=== PATIENT | male | born 1955 | race Caucasian/White ===

== ENCOUNTER → 2017-01-05 | Outpatient (CLI) | payer OTHER ==
[~2017-01-05] MED LIST: ASCO500T16 PO; EFFSR150 PO; EFFSR75 PO; FISHOIL PO; LEVO100T PO; LISI-725 PO; METFTAB PO; METO1TAB66 PO; MULTTAB58 PO; NIAC500T8 PO; POTA20TA16 PO; TYLOTC500 PO; VITA400C3 PO
[2017-01-05 15:59] LABS: BASO % 0.7 %; BASO ABS # 0.06 K/uL (0-0.2); COMPLETE YES; EOS % 3.3 %; HEMATOCRIT 42.6 % (42-52); IG% 0.2 %; LYMPH % 22.6 %; LYMPH ABS # 2.07 K/uL (1.2-3.4); MEAN CELL VOLUME 94.2 fL (80-100); MEAN CORPUSCULAR HEMOGLOBIN 31.9 pg (25-34); MEAN CORPUSCULAR HGB CONC 33.8 g/dl (32-36); MEAN PLATELET VOLUME 11.3 fL (7.4-10.4); MONO % 12.3 %; NEUT % 60.9 %; PLATELET COUNT 279 K/uL (130-400); RED BLOOD COUNT 4.52 M/uL (4.7-6.1); WHITE BLOOD COUNT 9.15 K/uL (4.8-10.8)
[2017-01-05 16:02] LABS: URINE APPEARANCE CLOUDY (CLEAR); URINE BILIRUBIN NEG (NEG); URINE COLOR YELLOW; URINE NITRITE NEG (NEG); URINE PH 7.5 (4.5-7.5); URINE SPECIFIC GRAVITY 1.018 (1.000-1.030); UROBILINOGEN NEG (NEG); ZZUR CULT IF INDIC CLEAN CATCH NO
[2017-01-05 16:04] LABS: MANUAL MICROSCOPIC REQUIRED? NO; REVIEW REQ? NO
[2017-01-05 16:23] LABS: ALT/SGPT 34 U/L (12-78); BLOOD UREA NITROGEN 13 mg/dl (7-18); BUN/CREATININE RATIO 8.5 (10-20); CALCIUM 9.2 mg/dl (8.5-10.1); CARBON DIOXIDE 31 mmol/L (21-32); CHLORIDE 103 mmol/L (98-107); CHOLESTEROL 189 mg/dl (0-200); CREATININE 1.53 mg/dl (0.60-1.40); GLUCOSE 93 mg/dl (70-99); POTASSIUM 3.7 mmol/L (3.5-5.1); SODIUM 139 mmol/L (136-145)
[2017-01-05 16:32] LABS: RATIO 4.9 mcg/mg (0-30.0)
[2017-01-05 16:34] LABS: ALB/GLOB RATIO 1.2 (0.9-2); ALKALINE PHOSPHATASE 72 U/L (45-117); AST/SGOT 22 U/L (15-37); CHOLESTEROL/HDL RATIO 5.1; HDL CHOLESTEROL 37 mg/dl; LDL CHOLESTEROL CALCULATED 85 mg/dl; PROSTATE SPECIFIC ANTIGEN 0.667 ng/ml (0.000-4.000); TRIGLYCERIDES 333 mg/dl (0-150); VERY LOW DENSITY LIPOPROT CALC 67 mg/dl
[2017-01-06 06:58] LABS: ESTIMATED AVERAGE GLUCOSE 123 mg/dl; HA1C FLAG Normal (Normal)
== END | disposition home or self-care (01) ==
LOC: C.LAB1850 15:09
PROVIDERS: ATTEND Internal Medicine
DX: R73.03 Prediabetes (principal); E55.9 Vitamin D deficiency, unspecified; E53.8 Deficiency of other specified B group vitamins; R35.1 Nocturia; E03.9 Hypothyroidism, unspecified; D50.9 Iron deficiency anemia, unspecified; N18.3 Chronic kidney disease, stage 3 (moderate); E78.1 Pure hyperglyceridemia

== ENCOUNTER → 2017-11-08 | Outpatient (CLI) | payer OTHER ==
[~2017-11-08] MED LIST changes: +METO-452 PO; -METO1TAB66 PO; +POTA-639 PO; -POTA20TA16 PO
[2017-11-08 16:36] LABS: BASO % 0.5 %; BASO ABS # 0.05 K/uL (0-0.2); EOS ABS # 0.28 K/uL (0-0.5); HEMATOCRIT 44.3 % (42-52); HEMOGLOBIN 14.9 g/dL (14.0-18.0); IG# 0.02 K/uL (0.00-0.02); LYMPH % 28.4 %; LYMPH ABS # 2.66 K/uL (1.2-3.4); MEAN CELL VOLUME 92.5 fL (80-100); MEAN CORPUSCULAR HEMOGLOBIN 31.1 pg (25-34); MEAN CORPUSCULAR HGB CONC 33.6 g/dl (32-36); MEAN PLATELET VOLUME 11.7 fL (7.4-10.4); MONO % 10.7 %; NEUT % 57.2 %; NEUT ABS # 5.35 K/uL (1.4-6.5); PLATELET COUNT 259 K/uL (130-400); RED CELL DISTRIBUTION WIDTH CV 13.6 % (11.5-14.5); RED CELL DISTRIBUTION WIDTH SD 45.9 fL (36.4-46.3); WHITE BLOOD COUNT 9.36 K/uL (4.8-10.8)
[2017-11-08 17:21] LABS: ALBUMIN 3.8 gm/dl (3.4-5.0); ALKALINE PHOSPHATASE 67 U/L (45-117); ALT/SGPT 32 U/L (12-78); AST/SGOT 24 U/L (15-37); BLOOD UREA NITROGEN 17 mg/dl (7-18); CALCIUM 9.4 mg/dl (8.5-10.1); CARBON DIOXIDE 29 mmol/L (21-32); CHOLESTEROL 155 mg/dl (0-200); CREATININE 1.68 mg/dl (0.60-1.40); GLUCOSE 88 mg/dl (70-99); LDL CHOLESTEROL CALCULATED 79 mg/dl; POTASSIUM 3.3 mmol/L (3.5-5.1); SODIUM 140 mmol/L (136-145); TOTAL PROTEIN 7.4 gm/dl (6.4-8.2)
[2017-11-09 05:53] LABS: HEMOGLOBIN A1C 6.1 % (4.5-5.6)
== END | disposition home or self-care (01) ==
LOC: C.LAB1850 15:29
PROVIDERS: ATTEND Internal Medicine
DX: Z12.5 Encounter for screening for malignant neoplasm of prostate (principal); E55.9 Vitamin D deficiency, unspecified; E53.8 Deficiency of other specified B group vitamins; E78.1 Pure hyperglyceridemia; E78.5 Hyperlipidemia, unspecified; E03.9 Hypothyroidism, unspecified

== ENCOUNTER 2021-07-27 11:15 | Inpatient (IN) ==
[2021-07-27] MEDS ORDERED: SODIUM CHLORIDE 0.9% 1000ML 1,000 ML IV SCH (11:30)
[2021-07-27 11:45] LABS: Basophils # (auto) 0.06 K/uL (0-0.2); Basophils % (auto) 0.5 %; Eosinophils % (auto) 1.6 %; Hematocrit (blood only) 42.6 % (42-52); Hemoglobin 14.2 g/dL (14.0-18.0); Immature Granulocytes # (auto) 0.03 K/uL (0.00-0.02); Immature Granulocytes % (auto) 0.2 %; Lymphocytes # (auto) 2.66 K/uL (1.2-3.4); Lymphocytes % (auto) 21.4 %; Mean Corpuscular Hemoglobin 30.9 pg (25-34); Mean Corpuscular Hgb Conc 33.3 g/dL (32-36); Mean Corpuscular Volume 92.6 fL (80-100); Mean Platelet Volume 10.8 fL (7.4-10.4); Monocytes # (auto) 1.13 K/uL (0.11-0.59); Monocytes % (auto) 9.1 %; Neutrophils # (auto) 8.37 K/uL (1.4-6.5); Neutrophils % (auto) 67.2 %; Platelet Count 344 K/uL (130-400); RDW Coefficient of Variation 13.6 % (11.5-14.5); RDW Standard Deviation 46.2 fL (36.4-46.3); White Blood Count 12.45 K/uL (4.8-10.8)
[2021-07-27] MEDS ORDERED: SODIUM CHLORIDE 0.9% 1000ML 1,000 ML IV ONE ×2 (11:46→13:46)
--- NOTE | 2021-07-27 11:46 | Emergency Department Note ---
Impression & Plan Atrial fibrillation with rapid ventricular response, Dehydration, Nausea vomiting and diarrhea, Acidosis, lactic, Hypokalemia ED Provider Note NAME: ROXANNE HOPE AGE: 66 SEX: M : 1955 ARRIVES VIA: Ambulance INFORMANT: Patient, ED PROVIDER(S): Nuno Coleman MD Chief Complaint: Weakness, fall HPI: Patient presents via EMS due to concern for fall. When EMS had arrived the patient was found on the ground. The patient does complain of being weak and fatigue with associated diarrhea. The patient was noted to be diaphoretic and pale but denies any chest pain shortness of breath nausea or vomiting. The patient denies any abdominal pain. Patient denies any alcohol tobacco or drug use. The patient denies any head or neck pain. BSG prior to arrival is 133 and the patient did receive IV fluids. EKG showed sinus arrhythmia. Patient denies any changes in medications no known sick contacts or recent travel. No stream or well water use or recent antibiotics. ROS: See HPI for pertinent positives and negatives. A total of 10 systems were reviewed and otherwise negative. Past medical history: See below Surgical history: See below Social history: See below Physical Exam: GENERAL: Fatigued in appearance. EYE EXAM: Normal conjunctiva. PERRL, no anisocoria and EOM's grossly intact w/o pain. [OROPHARYNX: Dry mucus membranes. Grossly normal dentition. NECK: Supple, no nuchal rigidity, no adenopathy, non-tender. No signs of meningismus. No midline C-spine TTP. LUNGS: Clear to auscultation. Normal chest wall mechanics. HEART: NSR, no MRG. ABDOMEN: Abdomen soft, non-tender, normo-active bowel sounds, no masses, no rebound or guarding. BACK: No CVA TTP. SKIN: No rashes and no bruising. UPPER EXTREMITIES: Upper extremities are grossly normal. LOWER EXTREMITIES: Grossly normal, no edema. NEURO EXAM: A&O x3, cranial nerves II-XII grossly intact, normal speech, moves all 4 extremities on command w/o issue. Good finger to nose, no drift, no sensory deficit. Differential diagnoses: Infection, dehydration, metabolic abnormality, hypo/hyperglycemia, electrolyte disturbance, anemia, hypoxia, cardiac sources, intracerebral event, toxicologic, neurologic, as well as other pathologies. Course: Patient was seen and evaluated the bedside. Full history physical exam was performed. EKG interpreted by me Junctional versus normal sinus rhythm. Ventricular rate of 68, normal QRS, no rmal axis, no obvious ST elevations or T WI. Repeat A. fib with RVR, rate 112, normal QRS, normal axis. Mild depressions in the lateral leads. Imaging Studies: See Below Cardiac monitoring: An order was placed for continuous cardiac monitoring. The monitor shows a rate of 72 with sinus rhythm. MDM: Patient presented with weakness fatigue after a fall. Blood work was obtained along with CT of the head and chest x-ray. Patient was given IV fluids. Patient did present and had a white count of 12 with a normal H&H and platelet count. The patient's kidney function is unremarkable with mild elevation anion gap. The patient does clinically appear dehydrated. LFTs and electrolytes normal with exception of hypokalemia. The patient was ordered p.o. and IV replacement. Initial lactate greater than 5. Additional IV fluids ordered. Patient appeared to have a run of A. fib with RVR. This may be secondary to dehydration but no prior history per patient. I did speak the on-call hosp italist Dr. Fuller and the patient was admitted to the medicine service. Past Med/Surg History Medical History (Updated 07/28/21 @ 08:34 by Nuno Coleman MD) Anemia Chronic kidney disease, stage 3 (moderate) Hypertension Vitamin D deficiency Surgical History History of oral surgery No history of previous surgery Family History Brother Cardiomyopathy Mother Congestive heart failure Father Prostate cancer Denies family history of Ovarian cancer Myocardial infarction Breast cancer Colorectal cancer Social History Smoking Status: Never smoker Second Hand Exposure: Yes; Hx Alcohol Use: No Hx Substance Use: No Preferred Language: Sammarinese Communication Ability: Effective Communication Tools: Writing Tablet Visual Impairment: No Limitations Hearing Ability: Normal 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 and No Beliefs That Will Affect Care: None marital status: Single Current Living Situation: Alone current occupational status: retired Other Information That Helps Us Care for You: No Feels Safe at Home: Yes Safety Concerns: Feels Safe At This Time Childhood Exposure to Second-Hand Smoke: Yes Dental Care, Regularly: No Physical Activity Frequency: Daily Physical Activity Frequency Comment: Walking Seatbelt Use: always Sunscreen Use: Yes Assistive Devices: Glasses Allergies Allergies Allergy/AdvReac Type Severity Reaction Status Date / Time Penicillins Allergy Unknown Verified 07/08/21 12:34 Home Meds Home Medications Medication Instructions Recorded Confirmed terazosin 2 mg capsule 2 mg PO HS 07/27/21 07/27/21 Previous Rx's Medication Instructions Recorded amlodipine 10 mg tablet 5 mg PO BID #90 tab 11/24/20 levothyroxine 125 mcg tablet 125 mcg PO DAILY #90 tab 11/24/20 metformin 500 mg tablet 500 mg PO BID #60 tab 11/24/20 metoprolol succinate 200 mg 200 mg PO DAILY #90 tab 11/24/20 tablet,extended release 24 hr venlafaxine 150 mg 150 mg PO DAILY #90 cap 11/27/20 capsule,extended release 24 hr venlafaxine 75 mg capsule,extended 75 mg PO DAILY #90 cap 11/27/20 release 24 hr Results & Data (ED) Vital Signs Vital Signs - 24 hr 07/27/21 11:24 07/27/21 11:25 07/27/21 11:28 Temperature 35.5 C L Temperature Source Temporal Artery Scan Pulse Rate 75 69 Pulse Rate from SpO2 Sensor 73 Respiratory Rate 15 20 Blood Pressure 157/88 H Blood Pressure Mean 111 Pulse Oximetry 100 100 Oxygen Delivery Method Room Air Room Air Sepsis Recent Fever Within 48 Hours No Sepsis New/Unexplained Change in Mental Status No Sepsis Action Taken by Nursing No Action Required 07/27/21 11:30 07/27/21 11:44 07/27/21 11:50 Temperature Temperature Source Pulse Rate 69 Pulse Rate from SpO2 Sensor 68 67 Respiratory Rate 11 L Blood Pressure 150/78 H Blood Pressure Mean 102 Pulse Oximetry 100 99 Oxygen Delivery Method Room Air Room Air Room Air Sepsis Recent Fever Within 48 Hours Sepsis New/Unexplained Change in Mental Status Sepsis Action Taken by Nursing 07/27/21 12:00 07/27/21 12:10 07/27/21 12:20 Temperature Temperature Source Pulse Rate 70 76 81 Pulse Rate from SpO2 Sensor 71 78 Respiratory Rate 13 18 19 Blood Pressure 144/81 H Blood Pressure Mean 102 Pulse Oximetry 100 100 Oxygen Delivery Method Room Air Room Air Room Air Sepsis Recent Fever Within 48 Hours Sepsis New/Unexplained Change in Mental Status Sepsis Action Taken by Nursing 07/27/21 12:30 07/27/21 12:31 07/27/21 12:42 Temperature Temperature Source Pulse Rate 74 77 74 Pulse Rate from SpO2 Sensor Respiratory Rate 12 12 13 Blood Pressure 170/83 H Blood Pressure Mean 112 Pulse Oximetry Oxygen Delivery Method Room Air Room Air Room Air Sepsis Recent Fever Within 48 Hours Sepsis New/Unexplained Change in Mental Status Sepsis Action Taken by Nursing 07/27/21 12:50 07/27/21 13:00 07/27/21 13:10 Temperature Temperature Source Pulse Rate 72 73 79 Pulse Rate from SpO2 Sensor Respiratory Rate 10 L 9 L Blood Pressure 154/89 H Blood Pressure Mean 110 Pulse Oximetry Oxygen Delivery Method Room Air Room Air Room Air Sepsis Recent Fever Within 48 Hours Sepsis New/Unexplained Change in Mental Status Sepsis Action Taken by Nursing 07/27/21 13:20 07/27/21 13:30 07/27/21 13:40 Temperature Temperature Source Pulse Rate 78 79 77 Pulse Rate from SpO2 Sensor Respiratory Rate 17 18 15 Blood Pressure 168/85 H Blood Pressure Mean 112 Pulse Oximetry Oxygen Delivery Method Room Air Room Air Room Air Sepsis Recent Fever Within 48 Hours Sepsis New/Unexplained Change in Mental Status Sepsis Action Taken by Nursing 07/27/21 13:50 07/27/21 14:00 07/27/21 14:10 Temperature Temperature Source Pulse Rate 69 112 H Pulse Rate from SpO2 Sensor Respiratory Rate 17 15 15 Blood Pressure Blood Pressure Mean Pulse Oximetry Oxygen Delivery Method Room Air Room Air Room Air Sepsis Recent Fever Within 48 Hours Sepsis New/Unexplained Change in Mental Status Sepsis Action Taken by Nursing 07/27/21 14:20 Temperature Temperature Source Pulse Rate 120 H Pulse Rate from SpO2 Sensor Respiratory Rate 13 Blood Pressure Blood Pressure Mean Pulse Oximetry Oxygen Delivery Method Room Air Sepsis Recent Fever Within 48 Hours Sepsis New/Unexplained Change in Mental Status Sepsis Action Taken by [facility] Medications Current Medication List: was personally reviewed by me Laboratory Data Attestation: I reviewed the patient's lab results. Result diagrams: 07/28/21 05:22 07/28/21 05: Lab Results 07/27/21 07/27/21 07/27/21 Range/Units 11:25 11:25 11:25 WBC 12.45 H (4.8-10.8) K/uL RBC 4.60 L (4.7-6.1) M/uL Hgb 14.2 (14.0-18.0) g/dL Hct 42.6 (42-52) % MCV 92.6 (80-100) fL MCH 30.9 (25-34) pg MCHC 33.3 (32-36) g/dL RDW Std Deviation 46.2 (36.4-46.3) fL RDW Coeff of [place] 13.6 (11.5-14.5) % Plt Count 344 (130-400) K/uL MPV 10.8 H (7.4-10.4) fL Immature Gran % (Auto) 0.2 % Neut % (Auto) 67.2 % Lymph % (Auto) 21.4 % [place] % (Auto) 9.1 % Eos % (Auto) 1.6 % Baso % (Auto) 0.5 % Neut # (Auto) 8.37 H (1.4-6.5) K/uL Lymph # (Auto) 2.66 (1.2-3.4) K/uL [place] # (Auto) 1.13 H (0.11-0.59) K/uL Eos # (Auto) 0.20 (0-0.5) K/uL Baso # (Auto) 0.06 (0-0.2) K/uL Immature Gran # (Auto) 0.03 H (0.00-0.02) K/uL Sodium 140 (136-145) mmol/L Potassium 2.8 L (3.5-5.1) mmol/L Chloride 104 (98-107) mmol/L Carbon Dioxide 21 (21-32) mmol/L Anion Gap 15 H (3-11) BUN 17 (6-23) mg/dl Creatinine 1.38 (0.6-1.4) mg/dl Est Cr Clr Drug Dosing 61.2 ml/min Est GFR ( Amer) 60.5 ml/min Est GFR (Non-Af Amer) 52.2 ml/min BUN/Creatinine Ratio 12.3 (10-20) Glucose 167 H (70-99(Fasting)) mg/dl Lactate (0.4-2.0) mmol/L Calcium 9.3 (8.5-10.1) mg/dl Magnesium 2.0 (1.7-2.4) mg/dl Total Bilirubin 0.5 (0.2-1.0) mg/dl AST 20 (13-39) U/L ALT 17 (7-52) U/L Alkaline Phosphatase 55 (34-104) U/L Total Creatine Kinase (30-223) U/L Troponin I High Sens 12.1 (0-20) pg/ml Total Protein 7.1 (6.0-8.3) gm/dl Albumin 3.8 (3.4-5.0) gm/dl Globulin 3.3 (2.5-4.0) gm/dl Albumin/Globulin Ratio 1.2 (0.9-2) TSH (0.300-4.500) uIu/ml 07/27/21 07/27/21 07/27/21 Range/Units 11:25 11:25 12:50 WBC (4.8-10.8) K/uL RBC (4.7-6.1) M/uL Hgb (14.0-18.0) g/dL Hct (42-52) % MCV (80-100) fL MCH (25-34) pg MCHC (32-36) g/dL RDW Std Deviation (36.4-46.3) fL RDW Coeff of [place] (11.5-14.5) % Plt Count (130-400) K/uL MPV (7.4-10.4) fL Immature Gran % (Auto) % Neut % (Auto) % Lymph % (Auto) % [place] % (Auto) % Eos % (Auto) % Baso % (Auto) % Neut # (Auto) (1.4-6.5) K/uL Lymph # (Auto) (1.2-3.4) K/uL [place] # (Auto) (0.11-0.59) K/uL Eos # (Auto) (0-0.5) K/uL Baso # (Auto) (0-0.2) K/uL Immature Gran # (Auto) (0.00-0.02) K/uL Sodium (136-145) mmol/L Potassium (3.5-5.1) mmol/L Chloride (98-107) mmol/L Carbon Dioxide (21-32) mmol/L Anion Gap (3-11) BUN (6-23) mg/dl Creatinine (0.6-1.4) mg/dl Est Cr Clr Drug Dosing ml/min Est GFR ( Amer) ml/min Est GFR (Non-Af Amer) ml/min BUN/Creatinine Ratio (10-20) Glucose (70-99(Fasting)) mg/dl Lactate 5.4 H* (0.4-2.0) mmol/L Calcium (8.5-10.1) mg/dl Magnesium (1.7-2.4) mg/dl Total Bilirubin (0.2-1.0) mg/dl AST (13-39) U/L ALT (7-52) U/L Alkaline Phosphatase (34-104) U/L Total Creatine Kinase 59 (30-223) U/L Troponin I High Sens (0-20) pg/ml Total Protein (6.0-8.3) gm/dl Albumin (3.4-5.0) gm/dl Globulin (2.5-4.0) gm/dl Albumin/Globulin Ratio (0.9-2) TSH 2.563 (0.300-4.500) uIu/ml Administered Medications Acetaminophen (Acetaminophen 325 Mg Tab) 650 mg PO Q4H PRN PRN Reason: Pain or Fever Stop: 08/26/21 16:28 Last Admin: 07/28/21 03:31 Dose: 650 mg Documented by: [id number] Amlodipine Besylate (Amlodipine Besylate 5 Mg Tab) 5 mg PO BID [facility] Stop: 08/26/21 20:59 Last Admin: 07/27/21 20:19 Dose: 5 mg Documented by: [id number] Insulin Aspart (Insulin Aspart Per Unit) 0 units SC ACHS [facility] Stop: 08/26/21 16:29 Last Admin: 07/27/21 20:07 Dose: Not Given Documented by: [id number] Admin: 07/27/21 18:14 Dose: Not Given Documented by: [id number] Levothyroxine Sodium (Levothyroxine Sodium 125 Mcg Tablet) 125 mcg PO DAILYBB [facility] Stop: 08/27/21 06:29 Last Admin: 07/28/21 06:12 Dose: 125 mcg Documented by: [id number] Metoprolol Tartrate (Metoprolol Tartrate 100 Mg Tab) 100 mg PO BID [facility] Stop: 08/26/21 20:59 Last Admin: 07/27/21 20:20 Dose: 100 mg Documented by: [id number] Potassium Chloride (Potassium Chloride Crtab 20 Meq Tabcr) 20 meq PO BID [facility] Stop: 07/28/21 21:01 Last Admin: 07/27/21 20:20 Dose: 20 meq Documented by: [id number] Terazosin HCl (Terazosin Hcl 1 Mg Cap) 2 mg PO HS [facility] Stop: 08/26/21 20:59 Last Admin: 07/27/21 20:19 Dose: 2 mg Documented by: [id number] Discontinued Medications Aspirin (Aspirin 81 Mg Ectab) 81 mg PO NOW STA Stop: 07/27/21 15:12 Last Admin: 07/27/21 15:48 Dose: 81 mg Documented by: [id number] Sodium Chloride (Nss 1000ml) 1,000 mls @ 999 mls/hr IV .Q1H1M [facility] Stop: 07/27/21 12:30 Last Infusion: 07/27/21 12:53 Dose: 0 mls/hr Documented by: [id number] Admin: 07/27/21 11:46 Dose: 999 mls/hr Documented by: [id number] Sodium Chloride (Nss 1000ml) 1,000 mls @ 999 mls/hr IV .Q1H1M ONE Stop: 07/27/21 12:46 Last Infusion: 07/27/21 12:53 Dose: 0 mls/hr Documented by: [id number] Admin: 07/27/21 11:47 Dose: 999 mls/hr Documented by: [id number] Potassium Chloride (K Clif / Wtr) 10 meq in 100 mls @ 100 mls/hr IV ONE ONE; Protocol Stop: 07/27/21 13:07 Last Infusion: 07/27/21 15:25 Dose: 0 mls/hr Documented by: [id number] Admin: 07/27/21 13:52 Dose: 100 mls/hr Documented by: [id number] Sodium Chloride (Nss 1000ml) 1,000 mls @ 999 mls/hr IV .Q1H1M ONE Stop: 07/27/21 14:46 Last Infusion: 07/27/21 15:25 Dose: 0 mls/hr Documented by: [id number] Admin: 07/27/21 13:52 Dose: 999 mls/hr Documented by: [id number] Magnesium Sulfate/Dextrose (Magnesium Sulfate / D5w) 1 gm in 100 mls @ 50 mls/hr IV ONE ONE Stop: 07/27/21 17:14 Last Infusion: 07/27/21 18:15 Dose: 0 mls/hr Documented by: [id number] Admin: 07/27/21 15:44 Dose: 50 mls/hr Documented by: [id number] Lactated Ringer's (Lr) 1,000 mls @ 125 mls/hr IV .Q8H [facility] Stop: 07/28/21 08:28 Last Admin: 07/28/21 00:52 Dose: 125 mls/hr Documented by: [id number] Infusion: 07/28/21 00:44 Dose: 125 mls/hr Documented by: [id number] Admin: 07/27/21 16:44 Dose: 125 mls/hr Documented by: [id number] Metoprolol Tartrate (Metoprolol Tartrate 50 Mg Tab) 50 mg PO NOW STA Stop: 07/27/21 15:13 Last Admin: 07/27/21 15:48 Dose: 50 mg Documented by: [id number] Ondansetron HCl (Ondansetron Inj 2 Mg/Ml 2 Ml Vial) 4 mg IV NOW STA Stop: 07/27/21 15:21 Last Admin: 07/27/21 15:44 Dose: 4 mg Documented by: [id number] Potassium Chloride (Potassium Chloride Crtab 20 Meq Tabcr) 40 meq PO NOW STA Stop: 07/27/21 12:09 Last Admin: 07/27/21 13:53 Dose: 40 meq Documented by: [id number] Potassium Chloride (Potassium Chloride 10 Meq / 100ml Wtr) 10 meq IV UD STA; Protocol Stop: 07/27/21 14:41 Last Admin: 07/27/21 15:43 Dose: 10 meq Documented by: [id number] Imaging Data Radiologist's Impression: Chest X-Ray 07/27/21 11:20 SINGLE VIEW CHEST CLINICAL HISTORY: Generalized weakness. FINDINGS: An AP, portable, upright chest radiograph is compared to study dated 12/09/2005. The examination is degraded by portable technique and apical lordotic positioning. The heart is enlarged noting atherosclerotic calcification of the thoracic aorta. The pulmonary vasculature is noncongested. Chronic elevation of the right hemidiaphragm and interstitial thickening is unchanged. There is no airspace consolidation or large pleural effusion. No pneumothorax is seen. The skeletal structures are osteopenic. The bony thorax is grossly intact. IMPRESSION: Mild cardiomegaly with no acute cardiopulmonary abnormality. ACT 112: Negative or not required by law. Electronically signed by: Margarito Agee M.D. 07/27/2021 11:[address] 07/27/21 11:20 CT SCAN OF THE BRAIN WITHOUT IV CONTRAST CLINICAL HISTORY: Fall. Dizziness. COMPARISON STUDY: No priors. TECHNIQUE: Unenhanced axial CT scan of the brain is performed from the vertex to the skull base. A dose lowering technique was utilized adhering to the principles of ALARA. CT DOSE: 614.27 mGy.cm FINDINGS: Brain parenchyma: There is age-related involutional change noting mild subcortical and periventricular microangiopathic disease. There is no hemorrhage, mass effect, or evidence of acute territorial ischemia by CT criteria. Sharma-white matter differentiation is preserved. No extra-axial fluid collection is seen. Ventricles, sulci, cisterns: Prominent secondary to involutional change. Intracranial vasculature: There is atherosclerotic calcification of the cavernous carotid arteries. Calvarium: There is no depressed calvarial fracture. Sinuses and mastoids: There is trace mucosal thickening in the left maxillary a ntrum. The remaining visualized paranasal sinuses are clear. The mastoid air cells are well pneumatized. Orbits: The bony orbits are grossly intact. IMPRESSION: There is no hemorrhage, mass effect, or evidence of acute territorial ischemia by CT criteria. ACT 112: Negative or not required by law. Electronically signed by: Margarito Agee M.D. 07/27/2021 11:47 AM Discharge Plan Visit Data Chief Complaint: Fall ED Provider: Nuno Coleman Discharge Problem: Atrial fibrillation with rapid ventricular response, Dehydration, Nausea vomiting and diarrhea, Acidosis, lactic, Hypokalemia Patient Disposition: Admitted As Inpatient Discharge Instructions Interventions: ED Discharge Assessment Last Done: 07/27/21 16:07
--- NOTE | 2021-07-27 11:49 | CT Scan Report ---
CT SCAN OF THE BRAIN WITHOUT IV CONTRAST CLINICAL HISTORY: Fall. Dizziness. COMPARISON STUDY: No priors. TECHNIQUE: Unenhanced axial CT scan of the brain is performed from the vertex to the skull base. A do se lowering technique was utilized adhering to the principles of ALARA. CT DOSE: 614.27 mGy.cm FINDINGS: Brain parenchyma: There is age-related involutional change noting mild subcortical and periventricula r microangiopathic disease. There is no hemorrhage, mass effect, or evidence of acute territorial isc hemia by CT criteria. Sharma-white matter differentiation is preserved. No extra-axial fluid collection is seen. Ventricles, sulci, cisterns: Prominent secondary to involutional change. Intracranial vasculature: There is atherosclerotic calcification of the cavernous carotid arteries. Calvarium: There is no depressed calvarial fracture. Sinuses and mastoids: There is trace mucosal thickening in the left maxillary antrum. The remaining v isualized paranasal sinuses are clear. The mastoid air cells are well pneumatized. Orbits: The bony orbits are grossly intact. IMPRESSION: There is no hemorrhage, mass effect, or evidence of acute territorial ischemia by CT chaparro garcia. ACT 112: Negative or not required by law. Electronically signed by: Margarito Agee M.D. 07/27/2021 11:47 AM
--- NOTE | 2021-07-27 11:58 | XRay Report ---
SINGLE VIEW CHEST CLINICAL HISTORY: Generalized weakness. FINDINGS: An AP, portable, upright chest radiograph is compared to study dated 12/09/2005. The examina tion is degraded by portable technique and apical lordotic positioning. The heart is enlarged noting atherosclerotic calcification of the thoracic aorta. The pulmonary vasculature is noncongested. Chron ic elevation of the right hemidiaphragm and interstitial thickening is unchanged. There is no airspac e consolidation or large pleural effusion. No pneumothorax is seen. The skeletal structures are osteo penic. The bony thorax is grossly intact. IMPRESSION: Mild cardiomegaly with no acute cardiopulmonary abnormality. ACT 112: Negative or not required by law. Electronically signed by: Margarito Agee M.D. 07/27/2021 11:57 AM
[2021-07-27 12:01] LABS: Albumin Globulin Ratio 1.2 (0.9-2); Albumin Level 3.8 gm/dl (3.4-5.0); BUN Creatinine Ratio 12.3 (10-20); Bilirubin,Total 0.5 mg/dl (0.2-1.0); Calcium 9.3 mg/dl (8.5-10.1); Creatinine Clr Calc Pharmacy 61.2 ml/min; Est GFR (African American) 60.5 ml/min; Est GFR (Non-African American) 52.2 ml/min; Globulin 3.3 gm/dl (2.5-4.0); Potassium 2.8 mmol/L (3.5-5.1); Total Protein 7.1 gm/dl (6.0-8.3)
[2021-07-27] MEDS ORDERED: POTASSIUM CHLORIDE / WTR 10 MEQ/100 ML PLCT IV ONE (12:08)
[2021-07-27] MEDS ORDERED: POTASSIUM CHLORIDE CRTAB 20 MEQ TABCR PO STA (12:08)
--- NOTE | 2021-07-27 14:20 | History & Physical Report ---
Date of Service July 27, 2021 Assessment & Plan (1) Atrial fibrillation: Plan: Patient found of new onset atrial fibrillation rvr which likely contribute to his weakness. His ventricular rates are 112. Patient reportedly is on significant doses of metoprolol succinate this be continued but will make it tartrate. Check an echocardiogram consider him for formal anticoagulation is unclear whether the patient may have missed his medications which could have led to his accelerated rhythm. We will check additional troponins (2) Weakness: Plan: Patient presents with weakness after having outpatient diarrheal illness found to be profoundly hypokalemic with accelerated junctional rhythm on EKG. Patient was given 40 mill equivalents of potassium orally and 10 IV in the ER. 80s when checked and replete. He did have some lactic acidosis was likely from hypoperfusion in the ER. Patient was also volume resuscitated with 3 L of crystalloid. Patient will be admitted to be continued with his potassium repletion and and evaluate his junctional rhythm on monitor. His initial high-sensitivity troponin was unremarkable. With regard to his diarrheal illness if this continues to occur we will check a stool bio fire. Supportive care with hydration and electrolyte repletion will be undertaken and then assessing his ambulatory status once complete Reportedly run of A. fib on the awake overnight monitor this was also seen on twelve-lead ekg. we will augment his potassium supplementation and keep him on monitor. (3) Hypertension: Plan: Patient has a history of hypertension followed by nephrology typically takes amlodipine 5 twice daily, metoprolol 200 XL once a day, recently taking terazosin for BPH. At one point time he was also on diuretics (4) Chronic kidney disease, stage 3 (moderate): Plan: Patient follows chronic kidney disease stage III by nephrology felt to be secondary to hypertension he also has the new diagnosis of diabetes or glucose intolerance for which she takes metformin. Unclear whether metformin might be influencing his diarrhea piquantly this will be held and will follow his glucose in addition to check his A1c (5) Depression: Plan: Patient does suffer from depression and takes venlafaxine. In 25 mg a day (6) Vitamin B12 deficiency: Plan: In the past patient is B12 deficiency did exhibit neurological symptoms and has since been replete we will check a B12 level on presentation Patient also known to be hypothyroid TSH was checked on presentation and found to be normal continues on Synthroid 125 Plan: DVT preventions early ambulation patient is a full code History of Present Illness Primary Care Provider: Jian Cruz MD Patient presents via EMS due to concern for fall. When EMS had arrived the patient was found on the ground. The patient does complain of being weak and fatigue with associated diarrhea. The patient was noted to be diaphoretic and pale but denies any chest pain shortness of breath nausea or vomiting. The patient denies any abdominal pain. Patient denies any alcohol tobacco or drug use. The patient denies any head or neck pain. BSG prior to arrival is 133 and the patient did receive IV fluids. EKG showed sinus arrhythmia. Patient denies any changes in medications no known sick contacts or recent travel. No stream or well water use or recent antibiotics. Patient reportedly had a apparent run of atrial fibrillation in the ER on the monitor this is likely prior to repletion of his potassium, will continue him on monitor recheck an EKG in the ER may be add additional IV potassium to his augmenting Patient reportedly is on disability patient lives alone has no local family patient did have a fall in the ER without apparent injury and I do begin to wonder about patient's safety will ask case management to explore other options for this patient and or least have him assessed Allergies Allergy/AdvReac Type Severity Reaction Status Date / Time Penicillins Allergy Unknown Verified 07/08/21 12:34 Home Medications Medication Instructions Recorded Confirmed Type amlodipine 10 mg tablet 5 mg PO BID #90 tab 11/24/20 07/27/21 Rx levothyroxine 125 mcg tablet 125 mcg PO DAILY #90 tab 11/24/20 07/27/21 Rx metformin 500 mg tablet 500 mg PO BID #60 tab 11/24/20 07/27/21 Rx metoprolol succinate 200 mg 200 mg PO DAILY #90 tab 11/24/20 07/27/21 Rx tablet,extended release 24 hr venlafaxine 150 mg 150 mg PO DAILY #90 cap 11/27/20 07/27/21 Rx capsule,extended release 24 hr venlafaxine 75 mg capsule,extended 75 mg PO DAILY #90 cap 11/27/20 07/27/21 Rx release 24 hr terazosin 2 mg capsule 2 mg PO HS 07/27/21 07/27/21 History Past Med/Surg History Medical History (Updated 07/27/21 @ 15:07 by Jeremy Fuller MD) Anemia Chronic kidney disease, stage 3 (moderate) Hypertension Vitamin D deficiency Surgical History History of oral surgery No history of previous surgery Family History Brother Cardiomyopathy Mother Congestive heart failure Father Prostate cancer Denies family history of Ovarian cancer Myocardial infarction Breast cancer Colorectal cancer Social History Smoking Status: Never smoker Second Hand Exposure: Yes; Hx Alcohol Use: No Hx Substance Use: No Preferred Language: Montenegrin Communication Ability: Effective Visual Impairment: No Limitations Hearing Ability: Normal 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 marital status: Single Current Living Situation: Alone current occupational status: retired Feels Safe at Home: Yes Childhood Exposure to Second-Hand Smoke: Yes Dental Care, Regularly: No Physical Activity Frequency: Daily Physical Activity Frequency Comment: Walking Seatbelt Use: always Sunscreen Use: Yes Review of Systems Review of Systems: Mild distress and fatigue no headache, no visual changes no speech or swallowing issues no chest pain, pressure or palpitations no shortness of breath, cough or wheezes no abdominal pain, nausea or vomiting, diarrhea or constipation no dysuria, hematuria or frequency no focal joint pain or swelling after his fall he only has some discomfort in his left shoulder did not examine to be injured no back pain, CVA tenderness or radicular pain no bruising, bleeding or rashes bruising was noted after his fall no focal signs of weakness or numbness or altered sensation no complaints of anxiety or depression. Patient has an unusual affect Physical Exam Physical Exam: The patient appeared well nourished and normally developed. Vital signs as documented. Head exam is normocephalic atraumatic Neck is without JVD, thyromegaly, or carotid bruits. Lungs are clear to auscultation, no focal loss of breath sounds Cardiac exam, Rhythm is regular.. No murmurs, rubs or gallops. Abdominal exam reveals normal bowel sounds, soft non tender, no masses Extremities are nonedematous and both pedal pulses are present After his fall shoulders elbows wrists ribs hips knees ankles were all assessed for pain and range of motion these were all felt to be normal at time Neurologic exam is alert and oriented, no focal loss of strength or sensation Skin is without bruises or rashes Psychologically is without concerns for anxiety or depression. Patient does have an unusual affect may be developmental delay Results & Data Results & Data ([facility]) Vital Signs (Past 12 Hours) Vital Signs Temp Pulse Resp BP Pulse Ox 07/27/21 14:10 112 H 15 07/27/21 14:00 15 07/27/21 13:50 69 17 07/27/21 13:40 77 15 07/27/21 13:30 79 18 168/85 H 07/27/21 13:20 78 17 07/27/21 13:10 79 07/27/21 13:00 73 9 L 154/89 H 07/27/21 12:50 72 10 L 07/27/21 12:42 74 13 07/27/21 12:31 77 12 170/83 H 07/27/21 12:30 74 12 07/27/21 12:20 81 19 07/27/21 12:10 76 18 100 07/27/21 12:00 70 13 144/81 H 100 07/27/21 11:50 99 07/27/21 11:44 150/78 H 100 07/27/21 11:30 69 11 L 07/27/21 11:28 95.9 F L 69 20 157/88 H 100 07/27/21 11:24 75 15 100 ECG Additional Comments: Accelerated junctional rhythm PG Care Time/CCT Total # of Minutes Spent Total Time Spent with Patient: Total time spent is greater than 50% in coordination of care (as documented) at patient's floor/unit and/or counseling patient: Coding Level of Care Code 05797 Initial Inpt Care Lvl 3 Diagnoses Hypertension I10 Chronic kidney disease, stage 3 (moderate) N18.3 Depression F32.9 Vitamin B12 deficiency E53.8 Weakness R53.1 Atrial fibrillation I48.91
[2021-07-27] MEDS ORDERED: POTASSIUM CHLORIDE 10 MEQ / 100ML WTR IV STA (14:40)
[2021-07-27 15:11] LABS: Appearance Urine Clear (Clear); Bilirubin Urine Negative (Negative); Blood Urine Negative (Negative); Color Urine Yellow; Glucose Urine UA 1+ (Negative); Ketones Urine 1+ (Negative); Leukocyte Esterase Urine Negative (Negative); Nitrite Urine Negative (Negative); Protein Urine Negative (Negative); Specific Gravity Urine 1.009 (1.000-1.030); Urobilinogen Urine Negative (Negative)
[2021-07-27] MEDS ORDERED: ASPIRIN 81 MG ECTAB PO STA (15:11)
[2021-07-27] MEDS ORDERED: METOPROLOL TARTRATE 50 MG TAB PO STA (15:12)
[2021-07-27] MEDS ORDERED: MAGNESIUM SULFATE / D5W 1 GM/100 ML BAG IV ONE (15:15)
[2021-07-27] MEDS ORDERED: ONDANSETRON INJ 2 MG/ML 2 ML VIAL IV STA (15:20)
[2021-07-27] MEDS ORDERED: DEXTROSE 50% 50 ML SYRINGE IV PRN (16:29)
[2021-07-27] MEDS ORDERED: GLUCOSE 40% GEL 15 GM TUBE PO PRN (16:29)
[2021-07-27] MEDS ORDERED: METOPROLOL TARTRATE 1 MG/ML VIAL IV PRN (16:29)
[2021-07-27] MEDS ORDERED: ONDANSETRON INJ 2 MG/ML 2 ML VIAL IV PRN (16:29)
[2021-07-27] MEDS ORDERED: GLUCAGON FOR INJ 1 MG VIAL SQ PRN (16:29)
[2021-07-27] MEDS ORDERED: CARBOHYDRATES FOR HYPOGLYCEMIA PO PRN (16:29)
[2021-07-27] MEDS ORDERED: GLUCOSE 10 TABS/TUBE PO PRN (16:29)
[2021-07-27] MEDS: LACTATED RINGER'S 1,000 ML IV SCH (16:44)
[2021-07-27] MEDS: INSULIN ASPART PER UNIT SC SCH ×2 (18:14→20:07)
[2021-07-27] MEDS: amLODIPine BESYLATE 5 MG TAB PO SCH (20:19)
[2021-07-27] MEDS: TERAZOSIN HCL 1 MG CAP PO SCH (20:19)
[2021-07-27] MEDS: METOPROLOL TARTRATE 100 MG TAB PO SCH (20:20)
[2021-07-27] MEDS: POTASSIUM CHLORIDE CRTAB 20 MEQ TABCR PO SCH (20:20)
--- NOTE | 2021-07-27 21:28 | XCELERA ---
[id number]
[2021-07-28] MEDS: LACTATED RINGER'S 1,000 ML IV SCH (00:52)
[2021-07-28] MEDS: ACETAMINOPHEN 325 MG TAB PO PRN (03:31)
[2021-07-28 06:05] LABS: Hematocrit (blood only) 38.9 % (42-52); Hemoglobin 12.9 g/dL (14.0-18.0); Mean Corpuscular Hemoglobin 30.4 pg (25-34); Mean Corpuscular Hgb Conc 33.2 g/dL (32-36); Mean Corpuscular Volume 91.7 fL (80-100); Mean Platelet Volume 10.8 fL (7.4-10.4); Platelet Count 265 K/uL (130-400); RDW Standard Deviation 46.8 fL (36.4-46.3); Red Blood Count 4.24 M/uL (4.7-6.1); White Blood Count 19.08 K/uL (4.8-10.8)
[2021-07-28] MEDS: LEVOTHYROXINE SODIUM 125 MCG TABLET PO SCH (06:12)
[2021-07-28 06:40] LABS: Troponin I High Sensitivity 45.7 pg/ml (0-20)
[2021-07-28 06:49] LABS: BUN Creatinine Ratio 10.2 (10-20); Calcium 8.3 mg/dl (8.5-10.1); Creatinine Clr Calc Pharmacy 86.5 ml/min; Est GFR (African American) 91.4 ml/min; Est GFR (Non-African American) 78.9 ml/min
[2021-07-28 07:49] LABS: Estimated Average Glucose 120 mg/dl; Hemoglobin A1C 5.8 % (4.5-5.6)
[2021-07-28] MEDS: INSULIN ASPART PER UNIT SC SCH ×4 (08:24→20:32)
[2021-07-28] MEDS: METOPROLOL TARTRATE 100 MG TAB PO SCH ×2 (08:26→20:31)
[2021-07-28] MEDS: amLODIPine BESYLATE 5 MG TAB PO SCH ×2 (08:27→20:31)
[2021-07-28] MEDS: POTASSIUM CHLORIDE CRTAB 20 MEQ TABCR PO SCH ×2 (08:27→20:30)
[2021-07-28] MEDS: ASPIRIN 81 MG ECTAB PO SCH (08:27)
[2021-07-28] MEDS: VENLAFAXINE HCL XR 75 MG CAPXR PO SCH (08:29)
[2021-07-28] MEDS: VENLAFAXINE HCL XR 150 MG CAPXR PO SCH (08:29)
--- NOTE | 2021-07-28 13:37 | Hospitalist Progress Note ---
Date of Service July 28, 2021 Assessment & Plan (1) Cerebellar stroke, acute: Plan: Following my bedside visit his symptoms (acute ataxia, vertigo, etc) were concerning for acute stroke. MRI brain obtained - LARGE right cerebellar stroke. CTA head/neck obtained shortly after -- this demonstrated right vertebral artery thrombosis/occlusion with some reconstitution of flow. A vertebral artery dissection is suspected but cannot be completely confirmed. Etiology of stroke - either large cardioembolic embolus in the setting of PAF with R vertebral artery thrombosis and subsequent stroke VS vertebral artery dissection with subsequent thrombosis and stroke. I spoke with Dr Qureshi from [facility] who will consult in am. He advised speaking with the on-call stroke physician at [facility]. I did indeed [place] Nancy [place] [facility] discussed his case in detail. No indication for transfer to [facility] at this time. Rx options - DAPT (asa/plavix) vs anticoagulation -- but latter carries high risk of hemorrhagic transformation given the location and size of his stroke. DAPT is likely the more favorable option at this time, with use of anticoagulation in ~10-14 days for the PAF. I corresponded with our on-call radiologist who interpreted the CTA head/neck - the area of thrombosis in the right vertebral artery is ~4cm in length which favors more so underlying dissection with thrombosis. MRA head/neck unlikely to provide any additional information thus will defer for now. Add plavix tonight to the previously given aspirin. No anticoagulation at this time. Neuro checks q4h. Defer on MRAs. Lipids were checked just a few weeks ago - defer for now. LDL was 106 - start lipitor 40mg daily. Formal consult placed to neurology, Dr Qureshi. PT, OT, speech evals. Echo findings from this admission noted - no obvious thrombus seen. Since patient is 30+ hours out from the likely start of his stroke will continue his current BP meds. (2) Vertebral artery occlusion: Plan: Right. ?underlying dissection with subsequent thrombosis? Other possible etiology is that of a large embolus in the setting of paroxysmal a.fib but felt to be less likely. No surgical or neuro-IR intervention needed at this time. See #1 above. (3) Atrial fibrillation: Plan: PAF. Present at time of admission yesterday, converting back to NSR about 1600 on 07/27/21. CHADS-VASc score is 5 - anticoagulation will be needed. Given #1 and the high risk of hemorrhagic conversion given the location & size of his stroke will defer on IV heparin at this time. However, will need oral anticoagulant in the near-future -- likely in about 10 days per the stroke physician at [facility] Continue metoprolol BID. Keep on tele. Echo with preserved EF. TSH wnl. Low potassium at time of admission yesterday may have precipitated his PAF episode as well. (4) Weakness: Plan: Retrospectively was likely 2nd to #1 above. Weakness improved. Will need PT/OT. (5) Hypertension: Plan: Continue amlodipine 5mg twice daily, metoprolol 100mg BID, terazosin 2mg daily. (6) Chronic kidney disease, stage 3 (moderate): Plan: stage 3a. bmp in am. patient appears modestly volume contracted. 1 L of isotonic fluids tonight then BMP in am. (7) Depression: Plan: Cont effexor. (8) Vitamin B12 deficiency: Plan: noted cont B12 supplementation (9) Hypokalemia: Plan: replaced resolved was likely 2nd to prolific vomiting at time of admission (10) Hyperlipidemia: Plan: see above start lipitor 40mg daily given #1 (11) Hypothyroidism: Plan: TSH 2.5 cont synthroid (12) DVT prophylaxis: Plan: hold on chemical means today start tomorrow if stable neurologically (13) Vertigo: Plan: 2nd to #1 start meclizine 12.5mg TID scheduled (14) Diabetes mellitus: Plan: controlled on metformin a1c <6% novolog SSI for now DM diet Plan: left message for pt's sister on her voicemail this evening patient has been informed of the MRI showing the stroke total care coordination time today about 80 min including calls to [facility] on-call, [facility] on-call, correspondence with radiology at [facility], multiple bedside visits, CVA treatment, etc Admission and Anticipated Discharge Date Admission Date: July 27, 2021 Subjective tele overnight - converted from a.fib to NSR ~1600 on 07/27/21 patient awake and alert during the visit when asked if he was having diarrhea (this was reported at time of ER presentation) he stated "No - I never had diarrhea" he recollects that he was a little confused yesterday at home when he fell ill his main complaints today are that of vertigo with any movement, and "feeling like I am going to fall over" any time he tries to stand these symptoms started yesterday he did have vomiting at home when he fell to the floor and had 1 episode early this am but none since denies focal motor weakness denies any recent respiratory illness has a roommate in his apartment but she has felt well has been getting daily headaches "for years" and did have headache yesterday also with slight headache this am but now resolved denies visual field cuts denies double vision Review of Systems Review of Systems: gen - no fevers or chills; good appetite today cv - no cp pulm - no cough or dyspnea GI - nausea/emesis yesterday, mild emesis early this am - now resolved; no abd p ain; DENIES DIARRHEA Physical Exam Physical Exam: gen - NAD, pale, awake, alert eyes - no nystagmus; PERRL; ?scant right lateral abducens (6th nerve) palsy? - but uncertain; visual duong full by direct confrontation neck - no JVD mouth - MMM heart - RRR, s1 s2, no murmur lungs - CTA b/l abd - soft NT ND BS+ ext - no edema, pulses 2+ b/l neuro - strength 5/5 x 4 exts; finger/nose/finger maneuver R hand with ataxia; left hand without ataxia; gait not tested Results & Data Results & Data ([facility]) Vital Signs (Past 12 Hours) Vital Signs Temp Pulse Resp BP BP Pulse Ox 07/28/21 11:41 36.8 C 59 L 18 157/74 H 96 07/28/21 07:28 36.6 C 61 18 164/76 H 94 07/28/21 04:13 36.6 C 60 18 170/80 H 96 Laboratory Results Laboratory Results - last 24 hr 07/28/21 07/28/21 07/28/21 05:22 05:22 05:22 WBC 19.08 H RBC 4.24 L Hgb 12.9 L Hct 38.9 L MCV 91.7 MCH 30.4 MCHC 33.2 RDW Std Deviation 46.8 H RDW Coeff of Choco 14.0 Plt Count 265 MPV 10.8 H Sodium 137 Potassium 4.0 D Chloride 105 Carbon Dioxide 25 Anion Gap 7 BUN 10 Creatinine 0.98 D Est Cr Clr Drug Dosing 86.5 Est GFR ( Amer) 91.4 Est GFR (Non-Af Amer) 78.9 BUN/Creatinine Ratio 10.2 Glucose 101 H POC Glucose Estimat Average Glucose 120 Hemoglobin A1c 5.8 H Calcium 8.3 L Magnesium 2.0 Troponin I High Sens 45.7 H D 07/28/21 07/28/21 07/28/21 07:27 11:34 16:38 WBC RBC Hgb Hct MCV MCH MCHC RDW Std Deviation RDW Coeff of Choco Plt Count MPV Sodium Potassium Chloride Carbon Dioxide Anion Gap BUN Creatinine Est Cr Clr Drug Dosing Est GFR ( Amer) Est GFR (Non-Af Amer) BUN/Creatinine Ratio Glucose POC Glucose 113 H 102 H 115 H Estimat Average Glucose Hemoglobin A1c Calcium Magnesium Troponin I High Sens 07/28/21 20:27 WBC RBC Hgb Hct MCV MCH MCHC RDW Std Deviation RDW Coeff of Choco Plt Count MPV Sodium Potassium Chloride Carbon Dioxide Anion Gap BUN Creatinine Est Cr Clr Drug Dosing Est GFR ( Amer) Est GFR (Non-Af Amer) BUN/Creatinine Ratio Glucose POC Glucose 102 H Estimat Average Glucose Hemoglobin A1c Calcium Magnesium Troponin I High Sens PG Care Time/CCT Total # of Minutes Spent Total Time Spent with Patient: Total time spent is greater than 50% in coordination of care (as documented) at patient's floor/unit and/or counseling patient: Prolonged Care Time Prolonged Care Time: Yes 80 Coding Level of Care Code 37472 Subseq Hosp Care Lvl 3 (25 - SIGNIFICANT, SEPARATELY IDENTIFIABLE ) Diagnoses Atrial fibrillation I48.91 Weakness R53.1 Hypertension I10 Chronic kidney disease, stage 3 (moderate) N18.3 Depression F32.9 Vitamin B12 deficiency E53.8 Cerebellar stroke, acute I63.9 Vertebral artery occlusion I65.09 Hypokalemia E87.6 Hyperlipidemia E78.5 Hypothyroidism E03.9 DVT prophylaxis Z29.9 Vertigo R42 Diabetes mellitus E11.9 Additional Codes Prolonged Care Time - Prolonged Care Time: Yes ([id number]) Time Spent (min) 80
[2021-07-28] MEDS ORDERED: NSS + 20MEQ KCL 20 MEQ/1,000 ML BAG IV SCH (13:45)
--- NOTE | 2021-07-28 15:21 | Magnetic Resonance Report ---
MRI OF THE BRAIN WITHOUT IV CONTRAST CLINICAL HISTORY: Acute vertigo. Atrial fibrillation. COMPARISON STUDY: CT of the brain dated 07/27/2021. TECHNIQUE: MRI of the brain was performed utilizing various T1 and T2-weighted sequences in the axial , sagittal, and coronal planes. IV contrast was not administered for this examination. FINDINGS: Brain parenchyma: There is a large region of restricted diffusion within the right cerebellar hemisph ere consistent with an acute to subacute infarct. There is no hemorrhage or mass effect. No additiona l foci of restricted diffusion are identified. There is age-related involutional change noting mild-t o-moderate subcortical and periventricular microangiopathic disease. No extra-axial fluid collection is seen. The cerebellar tonsils are normal in configuration. Ventricles, sulci, and cisterns: Prominent secondary to involutional change. Pituitary and sella: Unremarkable. Intracranial vasculature: Normal flow voids are maintained at the skull base. Orbits: The bony orbits are grossly intact. Orbital contents are normal in appearance. Sinuses and mastoids: Mild to moderate mucosal thickening is noted in the left maxillary antrum. The remaining paranasal sinuses are clear. The mastoid air cells are well pneumatized. Calvarium: Unremarkable. Cervical cord: Partially visualized cervical spinal cord is normal in morphology and signal intensity . IMPRESSION: 1. Large acute to subacute infarct involving the right cerebellar hemisphere. 2. No additional foci of restricted diffusion are identified. 3. There is no hemorrhage or mass effect. ACT 112: Negative or not required by law. Electronically signed by: Margarito Agee M.D. 07/28/2021 3:20 PM
[2021-07-28] MEDS: MECLIZINE 12.5 MG TAB PO SCH ×2 (15:24→20:30)
[2021-07-28] MEDS ORDERED: OPTIRAY 320 125ml IV ONE (16:19)
--- NOTE | 2021-07-28 16:46 | CT Scan Report ---
CT ANGIOGRAM OF THE BRAIN; CT ANGIOGRAM OF THE NECK CLINICAL HISTORY: Right cerebellar infarct. COMPARISON STUDY: CT of the brain dated 07/27/2021. MRI of the brain dated 07/28/2021. TECHNIQUE: Following the IV administration of 117 of Optiray 320, CT angiogram of the head and neck w as performed from the aortic arch to the vertex. Images are reviewed in the axial, sagittal, and adrianne nal planes. 3-D MIPS images are created and assessed. IV contrast was administered without complicati on. All measurements were calculated based on NASCET criteria. A dose lowering technique was utilize d adhering to the principles of ALARA. CT DOSE: 1256.91 mGycm FINDINGS: Brain parenchyma: Loss of cardona-white matter differentiation the right cerebellar hemisphere is consis tent with a subacute infarct. No additional foci of acute ischemia are suggested by CT criteria. Ther e is age-related involutional change noting [id number] subcortical and periventricular microang iopathic disease. No hemorrhage or mass effect is identified. There is no evidence of enhancing mass lesion on the angiogram phase images. The ventricles, sulci, and cisterns are prominent secondary to involutional change. No extra-axial fluid collection is seen. Thoracic aorta: There is atherosclerotic calcification of the thoracic aorta. Visualized portions of the thoracic aorta are normal in caliber. The aortic arch demonstrates standard 3-vessel anatomy. Right carotid arterial system: The right common carotid artery is widely patent, as are the right int ernal and external carotid arteries. Mild calcified plaque is noted in the carotid bulb. Left carotid arterial system: The left common carotid artery is widely patent, as are the left business analyst intern al and external carotid arteries. Vertebral arteries: The left vertebral artery is widely patent. There is complete thrombosis at the o rigin of the right vertebral artery seen on image #94. There is reconstitution of flow within the rig ht vertebral artery at the level of C5 seen on axial image #167. The distal right vertebral artery is patent to the skull base. The vertebral arteries are codominant in the neck. Subclavian arteries: Widely patent bilaterally. Intracranial vasculature: There is also chronic calcification of the cavernous carotid arteries. The internal carotid arteries are patent at the skull base, as are the anterior and middle cerebral arter ies bilaterally. There is origin of the right posterior cerebral artery. The vertebrobasilar sy stem and posterior cerebral arteries are patent. The left vertebral artery is dominant at the skull b ase. There is no aneurysm, high-grade stenosis, or focal vessel cut off seen throughout the intracran ial circulation. Jugular veins: Patent bilaterally. Dural sinuses: Patent. Lung apices: Partially visualized upper lobe lung parenchyma appears clear. Soft tissues: The visualized pharyngeal soft tissues are normal in appearance noting angiographic pha se technique. The oropharyngeal airway appears widely patent. The salivary and thyroid glands are nor mal in appearance. No cervical lymphadenopathy is seen. Skeletal structures: The skeletal structures are osteopenic. The calvarium appears intact. The cervic al spine is maintained noting multilevel spondylosis. No lytic or blastic lesion is seen. Orbits: The bony orbits are intact. Orbital contents are normal as visualized. Sinuses and mastoids: Mild to moderate mucosal thickening is noted in the left maxillary antrum. The remaining paranasal sinuses are clear. The mastoid air cells are well pneumatized. IMPRESSION: 1. There is a subacute/evolving right cerebellar infarct. 2. There is no evidence of hemorrhage or mass effect. 3. There is complete thrombosis at the origin of the right vertebral artery. This is reconstituted at the level of C5 and patent to the skull base. Underlying dissection is not excluded. 4. The left vertebral artery is widely patent, as are the carotid arteries. 5. Unremarkable CT angiogram of the brain. ACT 112: Negative or not required by law. Electronically signed by: Margarito Agee M.D. 07/28/2021 4:44 PM
[2021-07-28] MEDS: TERAZOSIN HCL 1 MG CAP PO SCH (20:30)
[2021-07-28] MEDS ORDERED: CLOPIDOGREL BISULFATE 75 MG TAB PO ONE (20:56)
[2021-07-28] MEDS ORDERED: PHARMACIST DISCHARGE MED REC CONSULT PRN (21:29)
--- NOTE | 2021-07-29 05:54 | Electrocardiogram Report ---
Test Reason : Blood Pressure : / mmHG Vent. Rate : 068 BPM Atrial Rate : 227 BPM P-R Int : 000 ms QRS Dur : 108 ms QT Int : 450 ms P-R-T Axes : 000 024 045 degrees QTc Int : 478 ms Normal sinus rhythm Nonspecific ST abnormality Abnormal ECG When compared with ECG of 09-MAR-2012 16:24, ST now depressed in Anterior leads Confirmed by Souleymane Murphy ([id number]) on 07/29/2021 5:53:46 AM Referred By: Confirmed By:Souleymane Murphy
--- NOTE | 2021-07-29 06:04 | Electrocardiogram Report ---
Test Reason : Blood Pressure : / mmHG Vent. Rate : 112 BPM Atrial Rate : 122 BPM P-R Int : 000 ms QRS Dur : 102 ms QT Int : 368 ms P-R-T Axes : 000 035 002 degrees QTc Int : 502 ms Atrial fibrillation with rapid ventricular response Abnormal ECG When compared with ECG of 27-JUL-2021 11:18, Atrial fibrillation has replaced Sinus rhythm Vent. rate has increased BY [address] more depressed in Anterolateral leads Confirmed by Souleymane Murphy ([id number]) on 07/29/2021 6:04:37 AM Referred By: REFERRED SELF Confirmed By:Souleymane Murphy
[2021-07-29] MEDS: LEVOTHYROXINE SODIUM 125 MCG TABLET PO SCH (06:16)
[2021-07-29] MEDS: ACETAMINOPHEN 325 MG TAB PO PRN ×2 (06:18→20:46)
[2021-07-29 07:23] LABS: Hematocrit (blood only) 38.9 % (42-52); Hemoglobin 13.6 g/dL (14.0-18.0); Mean Corpuscular Hemoglobin 32.2 pg (25-34); Mean Corpuscular Volume 92.2 fL (80-100); Mean Platelet Volume 11.1 fL (7.4-10.4); Platelet Count 266 K/uL (130-400); RDW Coefficient of Variation 13.7 % (11.5-14.5); RDW Standard Deviation 45.8 fL (36.4-46.3); Red Blood Count 4.22 M/uL (4.7-6.1); White Blood Count 13.26 K/uL (4.8-10.8)
[2021-07-29 07:46] LABS: BUN Creatinine Ratio 11.8 (10-20); Calcium 8.3 mg/dl (8.5-10.1); Creatinine Clr Calc Pharmacy 82.6 ml/min; Est GFR (African American) 87.1 ml/min; Est GFR (Non-African American) 75.2 ml/min; Potassium 3.5 mmol/L (3.5-5.1)
[2021-07-29] MEDS: INSULIN ASPART PER UNIT SC SCH ×4 (07:59→20:42)
[2021-07-29] MEDS: METOPROLOL TARTRATE 100 MG TAB PO SCH ×2 (08:35→20:47)
[2021-07-29] MEDS: CLOPIDOGREL BISULFATE 75 MG TAB PO SCH (08:35)
[2021-07-29] MEDS: ATORVASTATIN 40 MG TAB PO SCH (08:35)
[2021-07-29] MEDS: VENLAFAXINE HCL XR 150 MG CAPXR PO SCH (08:35)
[2021-07-29] MEDS: VENLAFAXINE HCL XR 75 MG CAPXR PO SCH (08:35)
[2021-07-29] MEDS: ASPIRIN 81 MG ECTAB PO SCH (08:36)
[2021-07-29] MEDS: amLODIPine BESYLATE 5 MG TAB PO SCH ×2 (08:36→20:47)
[2021-07-29] MEDS: MECLIZINE 12.5 MG TAB PO SCH ×3 (08:36→20:46)
--- NOTE | 2021-07-29 10:21 | Neurology Consultation ---
Date of Consultation July 29, 2021 Assessment & Plan (1) Cerebellar stroke, acute: (2) Vertebral artery occlusion: (3) Atrial fibrillation with rapid ventricular response: (4) Vertigo: This patient had a somewhat large acute right cerebellar stroke, likely secondary to right vertebral artery occlusion. The etiology of that may be embolic from the heart and the patient had atrial fibrillation on July 27 which spontaneously reverted back to sinus rhythm. He has been in sinus rhythm ever since. Echocardiogram reveals a dilated large left atrium which could be a source of embolus. Clinically the patient does not have as much vertigo, ataxia, or other neurologic deficits then I would of predicted given the size of his stroke. He does have some lateral nystagmus. Recommendations: 1. Increase activity slowly as tolerated. Physical and occupational therapy. He may benefit from a rehabilitation hospital stay. 2. agree with 81 milligram aspirin plus 75 milligrams clopidogrel daily. Continue this for 2 weeks and possibly convert to an anticoagulant, depending on his clinical course and test results. 3. Cardiology to make recommendations regarding atrial fibrillation and treatment of cardiac conditions. 4. Otherwise, I will follow. Overall, I spent a total of 100 minutes with this case including review of records, review of MRI films, direct evaluation the patient at bedside, discussion of the case with patient and RN at bedside, as well as discussion of the case with Dr. Cruz, including differential diagnosis and treatment options History of Present Illness Reason for Consultation: Patient is a 66-year-old, who I was asked to see at the request of Dr. Cruz, for neurologic consultation regarding stroke. Requesting Physician: Dr. Cruz Attending Physician: Schuyler Cruz History of Present Illness this patient has a longstanding history of hypertension ( 30 years), as well as dyslipidemia and diabetes. Prior to admission he was on no antiplatelet medication and has had no history of stroke. The morning of July 27, after eating breakfast he collapsed to the ground. He felt weak and fatigued but also had woozy feeling . He was brought to the emergency room July 27 at 11:24 with a temperature 35.5, pulse 75 and regular, blood pressure 127/88, respiratory rate of 15, and O2 saturation 100 percent In the emergency room he had no focal neurological findings. Laboratory studies revealed a white count elevation of 12.4 with a normal hemoglobin and hematocrit. Potassium was markedly low at 2.8 and he may have been dehydrated. Glucose was 167. lactate was elevated at 5.4. The patient was noted to have a run of atrial fibrillation and had significant atrial fibrillation rhythms until around 03/25/1999 when he flipped out of AFib and has been in normal sinus rhythm ever since. He was admitted and developed acute vertigo and poor balance. The room was spinning. Echocardiogram July 27 revealed severe left atrial dilation with moderate concentric left ventricular hypertrophy. At the time of the echocardiogram he was in atrial fibrillation with a rapid ventricular rate. MRI of the brain on July 28 revealed a large acute/subacute right cerebellar hemispheric stroke. CT angiography of the head and neck revealed a complete thrombosis of the origin of the right vertebral artery. It reconstitutes at the level of C5 and vertebral dissection cannot entirely be excluded. Otherwise CT angiography of head neck revealed no other significant stenoses or issues. After consulting with [facility] tele stroke they felt it was best keep the patient on dual antiplatelet therapy with clopidogrel and aspirin. There would avoid anticoagulation because of possible risk of posterior fossa hemorrhage. Today white count was 13 with a normal hemoglobin and hematocrit and Chem p rofile was unremarkable. Blood pressure this morning is 150/78. The patient believes that his vertigo and wobbliness is somewhat improved compared to yesterday. He still has very poor balance. Allergies Allergy/AdvReac Type Severity Reaction Status Date / Time Penicillins Allergy Unknown Verified 07/08/21 12:34 Home Medications Medication Instructions Recorded Confirmed Type amlodipine 10 mg tablet 5 mg PO BID #90 tab 11/24/20 07/27/21 Rx levothyroxine 125 mcg tablet 125 mcg PO DAILY #90 tab 11/24/20 07/27/21 Rx metformin 500 mg tablet 500 mg PO BID #60 tab 11/24/20 07/27/21 Rx metoprolol succinate 200 mg 200 mg PO DAILY #90 tab 11/24/20 07/27/21 Rx tablet,extended release 24 hr venlafaxine 150 mg 150 mg PO DAILY #90 cap 11/27/20 07/27/21 Rx capsule,extended release 24 hr venlafaxine 75 mg capsule,extended 75 mg PO DAILY #90 cap 11/27/20 07/27/21 Rx release 24 hr terazosin 2 mg capsule 2 mg PO HS 07/27/21 07/27/21 History Patient History Medical History Anemia Chronic kidney disease, stage 3 (moderate) Hypertension Vitamin D deficiency Surgical History History of oral surgery No history of previous surgery Family History Brother Cardiomyopathy Mother , age 73 heart failure and lung cancer Congestive heart failure Lung cancer Father , age 73 from pancreatic cancer Prostate cancer Pancreatic cancer Denies family history of Ovarian cancer Myocardial infarction Breast cancer Colorectal cancer Social History Smoking Status: Never smoker Second Hand Exposure: Yes; Hx Alcohol Use: No Hx Substance Use: No Preferred Language: Faroese Communication Ability: Effective Communication Tools: Writing Tablet Visual Impairment: No Limitations Hearing Ability: Normal Nail Puller Required: Yes and No Beliefs That Will Affect Care: None marital status: Single Current Living Situation: Alone current occupational status: retired 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 Other Information That Helps Us Care for You: No Feels Safe at Home: Yes Safety Concerns: Feels Safe At This Time Childhood Exposure to Second-Hand Smoke: Yes Dental Care, Regularly: No Physical Activity Frequency: Daily Physical Activity Frequency Comment: Walking Seatbelt Use: always Sunscreen Use: Yes Assistive Devices: None Review of Systems Constitutional: no fever, no fatigue and no weakness Eyes: no diplopia, no eye pain and no worsening vision Ear, Nose, Mouth, Throat: no ear pain, no tinnitus, no hearing loss, no dizziness, no snoring, no hoarseness and no dysphagia Respiratory: no cough and no dyspnea Cardiovascular: no chest pain, no palpitations and no lightheadedness Gastrointestinal: no abdominal pain, no nausea and no vomiting Musculoskeletal: no back pain, no neck pain, no radicular pain, no joint pain and no myalgia Integumentary: no rash and no lesions Neurologic: + gait abnormality, + lack of coordination and + dizziness; no localized weakness, no generalized weakness, no tingling, no numbness, no tremor(s), no abnormal movements, no headache(s), no abnormal speech, no confusion and no memory loss Psychiatric: no depression, no irritability, no anxiety, no difficulty concentrating, no confusion and no hallucinations Endocrine: no fatigue and no flushing Hematologic / Lymphatic: no easy bleeding and no easy bruising Allergy / Immunological: no urticaria and no problem reported Exam (Neuro) Physical Exam: The patient is right-handed. The patient is awake, alert, and attentive. Speech is normal without any aphasia or dysarthria. The patient can name objects, repeat phrases, and has normal spontaneous speech. Mentation and thought processes are intact, with orientation to person, place and time, and normal fund of knowledge. Attention and concentration are normal. Mood and affect are normal and appropriate. General appearance and grooming are normal. Short and long-term memory are intact. Pupils are 4 mm bilaterally and reactive to light. Extraocular eye muscles are intact with some lateral nystagmus with left gaze. Visual acuity and visual duong seem normal grossly to confrontation. There are no deficits to sensation in the face in all 3 distributions of the fifth cranial nerve bilaterally. Corneal reflexes are positive bilaterally. Facial strength and symmetry was normal bilaterally. Hearing seems normal bilaterally. Palate moves well without asymmetry. There is normal sternocleidomastoid and trapezius (shoulder shrug) strength bilaterally. Tongue is midline with good strength bilaterally. Neck has a full range of motion without discomfort. There are no cervical bruits bilaterally. There are no cranial or ocular bruits. Heart is without murmur. There is a regular rhythm and rate. Cervical, thoracic, and lumbar spine are nontender to palpation. Gait was not tested but stance sitting up in bed is reasonable. With outstretched arms there is no drift. There are no resting, postural, or action tremors. There is no obvious ataxia with finger to nose testing. There is good facility in the hands. No other abnormal involuntary movements are noted. Motor strength is 5/5 diffusely in the right upper extremity including deltoids, biceps, triceps, brachioradialis, wrist flexors and extensors, licensed and certified midwife, and intrinsic hand muscles. motor strength was 4/5 proximally in the left upper extremity and closer to 5/5 distally. Motor strength is 5/5 diffusely in the legs bilaterally including hip flexors, quadriceps, hamstrings, gastrocnemius, tibialis anterior, tibialis posterior, and Peroneii muscles. Toe extensors are normal and there is good bulk in the extensor digitorum brevis muscles bilaterally. The limbs have good tone without rigidity or spasticity. There is no atrophy noted in the muscles. Muscle bulk is normal, there is no tenderness to pa lpation, no myotonia to percussion, and no fasciculations seen. Sensory examination is intact to touch and pin throughout all 4 limbs diffusely. Reflexes are 2/4 in the biceps, triceps, brachioradialis, quadriceps, and Achilles tendons bilaterally. There is no clonus bilaterally. Toes are downgoing with plantar stimulation bilaterally. Peripheral pulses are present and of normal quality distally in all 4 limbs. There is no peripheral edema noted in the limbs. Results & Data ([facility]) Vital Signs (Past 12 Hours) Vital Signs Temp Pulse Pulse Resp BP Pulse Ox 07/29/21 06:59 36.8 C 59 L 18 150/78 H 93 07/29/21 04:30 36.7 C 66 18 156/79 H 98 07/28/21 23:05 36.5 C 64 18 163/80 H 95 07/28/21 22:50 58 L PG Care Time/CCT Total # of Minutes Spent Total Time Spent with Patient: Total time spent is greater than 50% in coordination of care (as documented) at patient's floor/unit and/or counseling patient: Coding Level of Care Code 87208 Initial Inpt Care Lvl 3 Diagnoses Cerebellar stroke, acute I63.9 Vertebral artery occlusion I65.09 Atrial fibrillation with rapid ventricular response I48.91 Vertigo R42 Time Spent (min) 100
[2021-07-29] MEDS: TERAZOSIN HCL 1 MG CAP PO SCH (20:47)
--- NOTE | 2021-07-29 20:56 | Hospitalist Progress Note ---
Date of Service July 29, 2021 Assessment & Plan (1) Cerebellar stroke, acute: Plan: LARGE right cerebellar stroke. CTA neck with right vertebral artery thrombosis/occlusion with some reconstitution of flow. A vertebral artery dissection is suspected but cannot be completely confirmed. The thrombus is ~4cm in length. Etiology of stroke - either large cardioembolic embolus in the setting of PAF with R vertebral artery thrombosis and subsequent stroke VS vertebral artery dissection with subsequent thrombosis and stroke. Favor latter. Appreciate neurology consultation by Dr Qureshi. Both Dr Qureshi and [facility] [place] Stroke physician (contacted them 07/28/21 pm) recommend asa/plavix for secondary prevention. Cont both. Added lipitor 40mg daily. He did present with rapid a.fib - will need anticoagulation - but hold off on such due to high risk of hemorrhagic conversion. About 10 days out from the stroke will be safer to start oral anticoagulant at that time. Continue PT, OT. Both advising inpatient rehab. EXCELLENT candidate for such. Continue telemetry. Cont neuro checks. (2) Vertebral artery occlusion: Plan: Right. ?underlying dissection with subsequent thrombosis? Other possible etiology is that of a large embolus in the setting of paroxysmal a.fib but felt to be less likely. See # 1 above. No surgical or neuro-IR intervention needed at this time. Continue asa/plavix for secondary prevention. (3) Atrial fibrillation: Plan: PAF. Present at time of admission -- converting back to NSR about 1600 on 07/27/21. CHADS-VASc score is 5 - anticoagulation will be needed. Given #1 and the high risk of hemorrhagic conversion given the location & size of his stroke will defer on IV heparin at this time. However, will need oral anticoagulant in the near-future -- likely in about 10 days per the stroke physician at [facility] Continue metoprolol BID. Keep on tele. Echo with preserved EF. TSH wnl. Low potassium at time of admission may have precipitated his PAF episode as well. (4) Weakness: Plan: Retrospectively was likely 2nd to #1 above. Weakness improved/resolving. Cont PT/OT. Will need inpatient rehab. (5) Hypertension: Plan: Continue amlodipine 5mg twice daily, metoprolol 100mg BID, terazosin 2mg daily. (6) Chronic kidney disease, stage 3 (moderate): Plan: stage 3a. bmp stable today. (7) Depression: Plan: Cont effexor. (8) Vitamin B12 deficiency: Plan: cont B12 supplementation (9) Hypokalemia: Plan: replaced resolved was likely 2nd to prolific vomiting at time of admission (vomiting 2nd to acute CVA) (10) Hyperlipidemia: Plan: see above cont lipitor 40mg daily (11) Hypothyroidism: Plan: TSH 2.5 cont synthroid (12) DVT prophylaxis: Plan: start heparin SC tomorrow AM (13) Vertigo: Plan: 2nd to #1 controlled cont meclizine 12.5mg TID scheduled (14) Diabetes mellitus: Plan: controlled on metformin a1c <6% novolog SSI for now DM diet Plan: updated pt's sister this evening by phone she [place] answered her questions Admission and Anticipated Discharge Date Admission Date: July 27, 2021 Subjective patient feeling better today vertigo is much improved with scheduled meclizine was able to participate with PT/OT - still with ataxia, but at least was able to stand, move around, and not fall no nausea mild headache still eating well tele overnight - no a.fib no new neuro symptoms Review of Systems Review of Systems: gen - no fevers, good appetite cv - no chest pain pulm - no cough, no dyspnea GI - no abd pain neuro - no diplopia Physical Exam Physical Exam: gen - NAD, awake, alert - looks good today eyes - PERRL; still with ?scant right lateral abducens (6th nerve) palsy; otherwise EOMI neck - no JVD mouth - MMM heart - RRR, s1 s2, no murmur lungs - CTA b/l abd - soft NT ND BS+ ext - no edema, pulses 2+ b/l neuro - strength 5/5 x 4 exts; finger/nose/finger maneuver R hand with minimal ataxia; left hand without ataxia; gait not tested Results & Data Results & Data ([facility]) Vital Signs (Past 12 Hours) Vital Signs Temp Pulse Pulse Resp BP Pulse Ox 07/29/21 19:27 36.9 C 66 18 158/76 H 96 07/29/21 15:49 36.9 C 58 L 19 162/81 H 98 07/29/21 10:25 36.8 C 74 19 145/77 H 96 07/29/21 10:15 58 L Laboratory Results Laboratory Results - last 24 hr 07/29/21 07/29/21 07/29/21 06:48 06:48 07:17 WBC 13.26 H RBC 4.22 L Hgb 13.6 L Hct 38.9 L MCV 92.2 MCH 32.2 MCHC 35.0 RDW Std Deviation 45.8 RDW Coeff of Choco 13.7 Plt Count 266 MPV 11.1 H Sodium 136 Potassium 3.5 Chloride 103 Carbon Dioxide 29 Anion Gap 4 BUN 12 Creatinine 1.02 Est Cr Clr Drug Dosing 82.6 Est GFR ( Amer) 87.1 Est GFR (Non-Af Amer) 75.2 BUN/Creatinine Ratio 11.8 Glucose 101 H POC Glucose 108 H Calcium 8.3 L 07/29/21 07/29/21 07/29/21 11:18 16:30 20:24 WBC RBC Hgb Hct MCV MCH MCHC RDW Std Deviation RDW Coeff of Choco Plt Count MPV Sodium Potassium Chloride Carbon Dioxide Anion Gap BUN Creatinine Est Cr Clr Drug Dosing Est GFR ( Amer) Est GFR (Non-Af Amer) BUN/Creatinine Ratio Glucose POC Glucose 99 110 H 91 Calcium PG Care Time/CCT Total # of Minutes Spent Total Time Spent with Patient: Total time spent is greater than 50% in coordination of care (as documented) at patient's floor/unit and/or counseling patient: Coding Level of Care Code 10638 Subseq Hosp Care Lvl 2 Diagnoses Cerebellar stroke, acute I63.9 Vertebral artery occlusion I65.09 Atrial fibrillation I48.91 Weakness R53.1 Hypertension I10 Chronic kidney disease, stage 3 (moderate) N18.3 Depression F32.9 Vitamin B12 deficiency E53.8 Hypokalemia E87.6 Hyperlipidemia E78.5 Hypothyroidism E03.9 DVT prophylaxis Z29.9 Vertigo R42 Diabetes mellitus E11.9
[2021-07-30] MEDS: LEVOTHYROXINE SODIUM 125 MCG TABLET PO SCH (06:05)
[2021-07-30 07:08] LABS: BUN Creatinine Ratio 16.8 (10-20); Calcium 8.7 mg/dl (8.5-10.1); Creatinine Clr Calc Pharmacy 88.5 ml/min; Est GFR (African American) 94.9 ml/min; Est GFR (Non-African American) 81.9 ml/min; Potassium 3.3 mmol/L (3.5-5.1)
[2021-07-30] MEDS ORDERED: POTASSIUM CHLORIDE CRTAB 20 MEQ TABCR PO STA ×2 (07:56→17:18)
--- NOTE | 2021-07-30 08:42 | Neurology Progress Note ---
Date of Service July 30, 2021 Assessment & Plan (1) Cerebellar stroke, acute: (2) Vertebral artery occlusion: (3) Atrial fibrillation with rapid ventricular response: (4) Vertigo: Plan: This patient had a somewhat large acute right cerebellar stroke, which extends to midline, likely secondary to right vertebral artery occlusion. The etiology of that may be embolic from the heart and the patient had atrial fibrillation on July 27 which spontaneously reverted back to sinus rhythm. He has been in sinus rhythm ever since. Echocardiogram reveals a dilated large left atrium which could be a source of embolus. MRI of the brain showed mild to moderate old small vessel ischemic disease and CT angiography showed no other vascular stenoses or anomalies in the head or neck. Clinically, the patient does not have as much vertigo, ataxia, or other focal neurologic deficits than I would of predicted, given the size of his stroke. He does have left gaze evoked nystagmus. Recommendations: 1. Increase activity slowly as tolerated. Physical and occupational therapy. He may benefit from a rehabilitation hospital stay. 2. continue 81 milligram aspirin plus 75 milligrams clopidogrel daily. Continue this for 2 weeks and then possibly convert to an anticoagulant, depending on his clinical course and test results. 3. consider a Cardiology consult to make recommendations regarding atrial fibrillation and treatment of cardiac conditions. 4. otherwise, I have no further neurologic testing or treatment recommendations to make at this time. Please contact me if I can be of further assistance in this case. Overall, I spent a total of 45 minutes with this case including review of records, review of MRI films, direct evaluation the patient at bedside, discussion of the case with patient and RN at bedside, as well as discussion of the case with Dr. Cruz, including differential diagnosis and treatment options Admission and Anticipated Discharge Date Admission Date: July 27, 2021 Subjective Patient does have some "dizziness" with position change. This consists swirling sensation either him or the. He does any nausea or vomiting this morning. He has no headache or speech. His vertiginous symptoms less prominent today than admission blood pressure is 158/88, and he is afebrile. Chem profile is unremarkable today although potassium is 3.3. Results & Data ([facility]) Vital Signs (Past 12 Hours) Vital Signs Temp Pulse Pulse Resp BP Pulse Ox 07/30/21 07:38 66 07/30/21 07:34 36.5 C 59 L 18 158/88 H 95 07/30/21 02:56 36.7 C 56 L 18 166/86 H 96 07/29/21 23:13 36.9 C 54 L 18 158/62 H 95 07/29/21 22:52 63 Exam (Neuro) Physical Exam: He is awake and alert. Speech is without aphasia or dysarthria. Mood is normal and affect is appropriate. Thought processes seem intact to conversation Extraocular eye muscles are intact but he has gaze evoked nystagmus to the left with left gaze. He has no ptosis, unequal pupils, or facial droop. There is no true drift with outstretched arms and he has no obvious ataxia of all 4 limbs. [id number] and [id number] is unremarkable. Strength is 5/5 in all major muscle groups in arms and legs both proximally distally except for proximal left upper extremity which is 4/5 and is old secondary to her previous shoulder injury. Facility in the hands is normal bilaterally PG Care Time/CCT Total # of Minutes Spent Total Time Spent with Patient: Total time spent is greater than 50% in coordination of care (as documented) at patient's floor/unit and/or counseling patient: Coding Level of Care Code 42875 Subseq Hosp Care Lvl 3 Diagnoses Cerebellar stroke, acute I63.9 Vertebral artery occlusion I65.09 Atrial fibrillation with rapid ventricular response I48.91 Vertigo R42 Time Spent (min) 45
[2021-07-30] MEDS: METOPROLOL TARTRATE 100 MG TAB PO SCH ×2 (08:43→19:59)
[2021-07-30] MEDS: INSULIN ASPART PER UNIT SC SCH ×4 (08:43→19:55)
[2021-07-30] MEDS: MECLIZINE 12.5 MG TAB PO SCH ×3 (08:44→19:57)
[2021-07-30] MEDS: VENLAFAXINE HCL XR 150 MG CAPXR PO SCH (08:44)
[2021-07-30] MEDS: VENLAFAXINE HCL XR 75 MG CAPXR PO SCH (08:44)
[2021-07-30] MEDS: amLODIPine BESYLATE 5 MG TAB PO SCH ×2 (08:44→20:00)
[2021-07-30] MEDS: ASPIRIN 81 MG ECTAB PO SCH (08:44)
[2021-07-30] MEDS: ATORVASTATIN 40 MG TAB PO SCH (08:44)
[2021-07-30] MEDS: CLOPIDOGREL BISULFATE 75 MG TAB PO SCH (08:44)
[2021-07-30] MEDS: HEPARIN SOD 5,000 UNIT/0.5 ML VIAL SQ SCH ×3 (08:45→19:58)
[2021-07-30] MEDS: LOSARTAN POTASSIUM 25 MG TAB PO SCH (10:12)
--- NOTE | 2021-07-30 15:53 | CT Scan Report ---
CT head/brain wo con CLINICAL HISTORY: 66 years-old Male with R cerebellar CVA; visual disturbance; eval new CVA. Acute s trokelike symptoms TECHNIQUE: Multiple axial CT images of the head were obtained without contrast. A dose lowering tech nique was utilized adhering to the principles of ALARA. CT DOSE: 703.88 mGycm COMPARISON: CTA head and neck 07/28/2021, head CT 07/27/2021 FINDINGS: No acute intracranial hemorrhage, midline shift, intracranial mass, hydrocephalus, or abnormal extra- axial collection. Increased cytotoxic edema within the subacute large mid anterior right cerebellar h emisphere infarct. There is partial effacement of the fourth ventricle. Involutional changes. White m atter hypodensities suggestive of chronic microvascular ischemic disease. Cerebral vascular calcifica tions. The calvarium is intact. Indeterminate likely benign 1.8 cm left parietal calvarial lesion. Minimal m ucosal thickening of the left maxillary sinus. The mastoid air cells are clear. IMPRESSION: 1. Evolving large subacute infarct within the mid to inferior right cerebellar hemisphere resulting i n partial effacement of the fourth ventricle. 2. No acute intracranial hemorrhage. ACT 112: Negative or not required by law. The above report was generated using voice recognition software. It may contain grammatical, syntax o r spelling errors. Electronically signed by: Honorio Maier M.D. 07/30/2021 3:51 PM
[2021-07-30] MEDS: TERAZOSIN HCL 1 MG CAP PO SCH (19:57)
--- NOTE | 2021-07-30 20:58 | Hospitalist Progress Note ---
Date of Service July 30, 2021 Assessment & Plan (1) Visual disturbance: Plan: 2nd to intracerebral swelling from stroke? other? CT head was obtained following my rounds and CT findings noted. No occipital lobe cva or lesion seen. Ocular exam remains similar to previous. Follow carefully. If any worsening of this issue - repeat MRI brain. (2) Cerebellar stroke, acute: Plan: LARGE right cerebellar stroke. CTA neck with right vertebral artery thrombosis/occlusion with some reconstitution of flow. A vertebral artery dissection is suspected but cannot be completely confirmed. The thrombus is ~4cm in length. Etiology of stroke - either large cardioembolic embolus in the setting of PAF with R vertebral artery thrombosis and subsequent stroke VS vertebral artery dissection with subsequent thrombosis and stroke. Favor latter. Appreciate neurology consultation by Dr Qureshi. Both Dr Qureshi and [facility] Stroke physician (contacted them 07/28/21 pm) recommend asa/plavix for secondary prevention. Cont both. Cont lipitor 40mg daily. He did present with rapid a.fib - will need anticoagulation - but hold off on such due to high risk of hemorrhagic conversion. [facility] [place] will be safer to start oral anticoagulant at that time. Continue PT, OT. Both advising inpatient rehab. EXCELLENT candidate for such. Continue telemetry. Cont neuro checks. (3) Vertigo: Plan: 2nd to #1 controlled cont meclizine 12.5mg TID scheduled; could consider qid dosing or larger dose for any refractory symptoms (4) Vertebral artery occlusion: Plan: Right. ?underlying dissection with subsequent thrombosis? Other possible etiology is that of a large embolus in the setting of paroxysmal a.fib but felt to be less likely. See # 1 above. No surgical or neuro-IR intervention needed at this time. Continue asa/plavix for secondary prevention. (5) Atrial fibrillation: Plan: PAF. Present at time of admission -- converting back to NSR about 1600 on 07/27/21. CHADS-VASc score is 5 - anticoagulation will be needed. Given #1 and the high risk of hemorrhagic conversion given the location & size of his stroke will defer on IV heparin at this time. However, will need oral anticoagulant in the near-future -- likely in about 10 days per the stroke physician at [facility]. Continue metoprolol BID. Keep on tele. Echo with preserved EF. TSH wnl. Low potassium at time of admission may have precipitated his PAF episode as well. K is low again today - give 40meq KCL now, followed by 2nd dose of such later today. Keep K level >4. (6) Weakness: Plan: Present on admission. Retrospectively was likely 2nd to #1 above. Weakness improved/resolving. Cont PT/OT. Will need inpatient rehab. (7) Hypertension: Plan: Continue amlodipine 5mg twice daily, metoprolol 100mg BID, terazosin 2mg daily. Adding losartan 25mg daily due to uncontrolled values. (8) Chronic kidney disease, stage 3 (moderate): Plan: stage 3a. bmp stable today. BMP in am. (9) Depression: Plan: Cont effexor. (10) Vitamin B12 deficiency: Plan: cont B12 supplementation (11) Hypokalemia: Plan: replace BMP in am (12) Hyperlipidemia: Plan: see above cont lipitor 40mg daily (13) Hypothyroidism: Plan: TSH 2.5 cont synthroid (14) DVT prophylaxis: Plan: cautiously start heparin SC (15) Diabetes mellitus: Plan: controlled on metformin a1c <6% novolog SSI for now DM diet Plan: updated pt's sister yesterday evening by phone she lives out of state ([place]) answered her questions dispo planning for rehab Admission and Anticipated Discharge Date Admission Date: July 27, 2021 Subjective pt c/o 1-2 days of visual disturbance no true visual field cut no blurry vision but when he looks out into the room the "floor looks like the wall, the wall looks like the ceiling..." vertigo still present but not severe mild when he tries to get up and move ataxia remains - slightly better than previous eating/drinking ok agreeable to rehab referral tele overnight- no PAF Review of Systems Review of Systems: gen - no fever or infectious symptoms eyes - no diplopia cv - no cp pulm - no dyspnea GI - no abd pain, nausea or emesis neuro - no new motor symptoms/weakness Physical Exam Physical Exam: gen - NAD, awake, alert eyes - PERRL; still with ?scant right lateral abducens (6th nerve) palsy; otherwise EOMI; visual duong again full by direct confrontation neck - no JVD mouth - MMM heart - RRR, s1 s2, no murmur lungs - CTA b/l abd - soft NT ND BS+ ext - no edema, pulses 2+ b/l neuro - strength 5/5 x 4 exts; finger/nose/finger maneuver R hand with scant ataxia; left hand without ataxia; gait not tested; heel-hampton maneuver intact b/l Results & Data Results & [facility] ([facility]) Vital Signs (Past 12 Hours) Vital Signs Temp Pulse Pulse Resp BP BP Pulse Ox 07/30/21 19:00 37.0 C 59 L 20 162/87 H 93 07/30/21 15:33 36.6 C 57 L 18 154/83 H 94 07/30/21 14:58 62 07/30/21 11:10 36.6 C 56 L 17 159/92 H 97 Laboratory Results Laboratory Results - last 24 hr 07/30/21 07/30/21 07/30/21 06:02 07:22 11:19 Sodium 136 Potassium 3.3 L Chloride 102 Carbon Dioxide 27 Anion Gap 7 BUN 16 Creatinine 0.95 Est Cr Clr Drug Dosing 88.5 Est GFR ( Amer) 94.9 Est GFR (Non-Af Amer) 81.9 BUN/Creatinine Ratio 16.8 Glucose 88 POC Glucose 100 H 105 H Calcium 8.7 07/30/21 07/30/21 16:27 19:54 Sodium Potassium Chloride Carbon Dioxide Anion Gap BUN Creatinine Est Cr Clr Drug Dosing Est GFR ( Amer) Est GFR (Non-Af Amer) BUN/Creatinine Ratio Glucose POC Glucose 108 H 106 H Calcium Diagnostic Findings Head CT 07/30/21 14:33 CT head/brain wo con CLINICAL HISTORY: 66 years-old Male with R cerebellar CVA; visual disturbance; eval new CVA. Acute strokelike symptoms TECHNIQUE: Multiple axial CT images of the head were obtained without contrast. A dose lowering technique was utilized adhering to the principles of ALARA. CT DOSE: 703.88 mGycm COMPARISON: CTA head and neck 07/28/2021, head CT 07/27/2021 FINDINGS: No acute intracranial hemorrhage, midline shift, intracranial mass, hydrocephalus, or abnormal extra-axial collection. Increased cytotoxic edema within the subacute large mid anterior right cerebellar hemisphere infarct. There is partial effacement of the fourth ventricle. Involutional changes. White matter hypodensities suggestive of chronic microvascular ischemic disease. Cerebral vascular calcifications. The calvarium is intact. Indeterminate likely benign 1.8 cm left parietal calvarial lesion. Minimal mucosal thickening of the left maxillary sinus. The mastoid air cells are clear. IMPRESSION: 1. Evolving large subacute infarct within the mid to inferior right cerebellar hemisphere resulting in partial effacement of the fourth ventricle. 2. No acute intracranial hemorrhage. ACT 112: Negative or not required by law. The above report was generated using voice recognition software. It may contain grammatical, syntax or spelling errors. Electronically signed by: Honorio Maier M.D. 07/30/2021 3:51 PM PG Care Time/CCT Total # of Minutes Spent Total Time Spent with Patient: Total time spent is greater than 50% in coordination of care (as documented) at patient's floor/unit and/or counseling patient: Coding Level of Care Code 43480 Subseq Hosp Care Lvl 3 Diagnoses Cerebellar stroke, acute I63.9 Vertebral artery occlusion I65.09 Atrial fibrillation I48.91 Weakness R53.1 Hypertension I10 Chronic kidney disease, stage 3 (moderate) N18.3 Depression F32.9 Vitamin B12 deficiency E53.8 Hypokalemia E87.6 Hyperlipidemia E78.5 Hypothyroidism E03.9 DVT prophylaxis Z29.9 Vertigo R42 Diabetes mellitus E11.9 Visual disturbance H53.9
[2021-07-31] MEDS: LEVOTHYROXINE SODIUM 125 MCG TABLET PO SCH (05:19)
[2021-07-31] MEDS: HEPARIN SOD 5,000 UNIT/0.5 ML VIAL SQ SCH ×3 (05:21→19:52)
[2021-07-31 08:02] LABS: BUN Creatinine Ratio 19.4 (10-20); Calcium 8.7 mg/dl (8.5-10.1); Creatinine Clr Calc Pharmacy 73.1 ml/min; Est GFR (African American) 86.1 ml/min; Est GFR (Non-African American) 74.3 ml/min; Potassium 3.8 mmol/L (3.5-5.1)
[2021-07-31 08:04] LABS: INR 1.1 (0.9-1.1); Prothrombin Time 11.2 Seconds (9.0-12.0)
[2021-07-31 08:06] LABS: Hemoglobin 14.8 g/dL (14.0-18.0); Mean Corpuscular Hemoglobin 31.2 pg (25-34); Mean Corpuscular Hgb Conc 34.4 g/dL (32-36); Mean Corpuscular Volume 90.5 fL (80-100); Mean Platelet Volume 11.1 fL (7.4-10.4); Platelet Count 295 K/uL (130-400); RDW Coefficient of Variation 13.3 % (11.5-14.5); RDW Standard Deviation 43.7 fL (36.4-46.3); Red Blood Count 4.75 M/uL (4.7-6.1); White Blood Count 10.82 K/uL (4.8-10.8)
[2021-07-31] MEDS: INSULIN ASPART PER UNIT SC SCH ×4 (08:26→19:48)
[2021-07-31] MEDS: LOSARTAN POTASSIUM 25 MG TAB PO SCH (08:29)
[2021-07-31] MEDS: ASPIRIN 81 MG ECTAB PO SCH (08:29)
[2021-07-31] MEDS: VENLAFAXINE HCL XR 150 MG CAPXR PO SCH (08:29)
[2021-07-31] MEDS: METOPROLOL TARTRATE 100 MG TAB PO SCH ×2 (08:29→19:54)
[2021-07-31] MEDS: CLOPIDOGREL BISULFATE 75 MG TAB PO SCH (08:29)
[2021-07-31] MEDS: ATORVASTATIN 40 MG TAB PO SCH (08:29)
[2021-07-31] MEDS: MECLIZINE 12.5 MG TAB PO SCH ×3 (08:29→19:51)
[2021-07-31] MEDS: amLODIPine BESYLATE 5 MG TAB PO SCH ×2 (08:29→19:55)
[2021-07-31] MEDS: VENLAFAXINE HCL XR 75 MG CAPXR PO SCH (08:29)
--- NOTE | 2021-07-31 13:44 | Hospitalist Progress Note ---
Date of Service July 31, 2021 Assessment & Plan (1) Visual disturbance: Plan: Likely 2nd to intracerebral swelling from stroke. CT head was obtained yesterday showing considerable brain edema in setting of #1. No occipital lobe cva or ICH. Ocular exam remains similar to previous. Follow carefully. If any worsening of this issue - repeat MRI brain. (2) Cerebellar stroke, acute: Plan: LARGE right cerebellar stroke. CTA neck with right vertebral artery thrombosis/occlusion with some reconstitution of flow. A vertebral artery dissection is suspected but cannot be completely confirmed. The thrombus is ~4cm in length. Etiology of stroke - either large cardioembolic embolus in the setting of PAF with R vertebral artery thrombosis and subsequent stroke VS vertebral artery dissection with subsequent thrombosis and stroke. Favor latter. Appreciate neurology consultation by Dr Qureshi. Both Dr Qureshi and [facility] Stroke physician (contacted them 07/28/21 pm) recommend asa/plavix for secondary prevention. Cont both. Cont lipitor 40mg daily. He did present with rapid a.fib - will need anticoagulation - but hold off on such due to high risk of hemorrhagic conversion. About 10 days out from the stroke will be safer to start oral anticoagulant at that time. Continue PT, OT. Both advising inpatient rehab. EXCELLENT candidate for such. Continue telemetry. Cont neuro checks. For vertigo increase meclizine from TID to QID dosing. (3) Vertigo: Plan: 2nd to #1. cont meclizine - increase to QID dosing. (4) Vertebral artery occlusion: Plan: Right. ?underlying dissection with subsequent thrombosis? Other possible etiology is that of a large embolus in the setting of paroxysmal a.fib but felt to be less likely. See # 1 above. No surgical or neuro-IR intervention needed at this time. Continue asa/plavix for secondary prevention. (5) Atrial fibrillation: Plan: PAF. Present at time of admission -- converting back to NSR about 1600 on 07/27/21. CHADS-VASc score is 5 - anticoagulation will be needed. Given #1 and the high risk of hemorrhagic conversion given the location & size of his stroke will defer on IV heparin at this time. However, will need oral anticoagulant in the near-future -- likely in about 10 days per the stroke physician at [facility] Continue metoprolol BID. Keep on tele. Echo with preserved EF. TSH wnl. Low potassium at time of admission may have precipitated his PAF episode as well. K/Mag wnl now. (6) Weakness: Plan: Present on admission. Retrospectively was likely 2nd to #1 above. Weakness improved/resolving. Cont PT/OT. Will need inpatient rehab. (7) Hypertension: Plan: Continue amlodipine 5mg twice daily, metoprolol 100mg BID, terazosin 2mg daily, losartan 25mg daily. If BPs continue to be elevated increase losartan to 25mg BID. (8) Chronic kidney disease, stage 3 (moderate): Plan: stage 3a. bmp stable today. (9) Depression: Plan: Cont effexor. (10) Vitamin B12 deficiency: Plan: cont B12 supplementation (11) Hypokalemia: Plan: replaced resolved (12) Hyperlipidemia: Plan: see above cont lipitor 40mg daily (13) Hypothyroidism: Plan: TSH 2.5 cont synthroid (14) DVT prophylaxis: Plan: cont heparin SC (15) Diabetes mellitus: Plan: controlled on metformin a1c <6% novolog SSI for now DM diet Plan: updated pt's sister several days ago by phone she lives in [place] dispo planning for rehab Admission and Anticipated Discharge Date Admission Date: July 27, 2021 Subjective new new issues overnight tele - NSR; no a.fib still with considerable ataxia; I watched him walk with therapy and his gait was very slow & unsteady still with vertigo and visual disturbance - unchanged eating ok Review of Systems Review of Systems: gen - no fevers or infectious issues cv - no chest pain pulm - no cough or dyspnea or MENENDEZ GI - no nausea or emesis Physical Exam Physical Exam: gen - NAD, awake, alert eyes - PERRL; still with ?scant right lateral abducens (6th nerve) palsy; otherwise EOMI neck - no JVD mouth - MMM heart - RRR, s1 s2, no murmur lungs - CTA b/l abd - soft NT ND BS+ ext - no edema, pulses 2+ b/l neuro - strength 5/5 x 4 exts; finger/nose/finger maneuver R hand with no ataxia today; left hand without ataxia; gait very unsteady, leans to Right Results & Data Results & Data ([facility]) Vital Signs (Past 12 Hours) Vital Signs Temp Pulse Pulse Resp BP BP Pulse Ox 05/14/22 11:44 36.9 C 62 17 151/92 H 96 07/31/21 08:00 36.5 C 62 18 157/91 H 95 07/31/21 06:14 54 L 07/31/21 02:59 37.0 C 57 L 20 144/86 H 95 Laboratory Results Laboratory Results - last 24 hr 07/31/21 07/31/21 07/31/21 11:18 14:55 16:16 POC Glucose 98 99 97 07/31/21 08/01/21 19:47 07:22 POC Glucose 107 H 112 H Diagnostic Findings cbc wnl; wbc now nl INR wnl BMP wnl including K level PG Care Time/CCT Total # of Minutes Spent Total Time Spent with Patient: Total time spent is greater than 50% in coordination of care (as documented) at patient's floor/unit and/or counseling patient: Coding Level of Care Code 61918 Subseq Hosp Care Lvl 2 Diagnoses Visual disturbance H53.9 Cerebellar stroke, acute I63.9 Vertigo R42 Vertebral artery occlusion I65.09 Atrial fibrillation I48.91 Weakness R53.1 Hypertension I10 Chronic kidney disease, stage 3 (moderate) N18.3 Depression F32.9 Vitamin B12 deficiency E53.8 Hypokalemia E87.6 Hyperlipidemia E78.5 Hypothyroidism E03.9 DVT prophylaxis Z29.9 Diabetes mellitus E11.9
[2021-07-31] MEDS ORDERED: CALCIUM CARBONATE 500 MG CHEWABLE TAB PO PRN (14:00)
[2021-07-31] MEDS ORDERED: PANTOprazole 40 MG TAB PO STA (14:05)
[2021-07-31] MEDS: ACETAMINOPHEN 325 MG TAB PO PRN (19:50)
[2021-07-31] MEDS: TERAZOSIN HCL 1 MG CAP PO SCH (19:52)
[2021-08-01] MEDS: LEVOTHYROXINE SODIUM 125 MCG TABLET PO SCH (05:40)
[2021-08-01] MEDS: HEPARIN SOD 5,000 UNIT/0.5 ML VIAL SQ SCH ×3 (05:41→21:32)
--- NOTE | 2021-08-01 07:15 | Communication Note ---
Date of Service: August 01, 2021 12:30 am -- notified by RN that patient had a minor fall while ambulating to bathroom with aide. Per report, patient did not fall to the ground but he did hi t his nose on the door frame. On my evaluation, patient recounts the incident and states that he tripped while walking. Denies LOC. Denies TOSCANO, vision changes, nausea, vomiting, weakness, or any other symptoms. On exam: small scabbed laceration on bridge of nose with no active bleeding, no tenderness to palpation over nose or orbital ridges. Able to breathe through each nare without pain or difficulty. CN II-XII in tact. Normal [id number]-[id number] bilaterally. Normal manrot-wz-bauu bilaterally. A/O x3. PERRLA. EOMI. Fall risk. Patient only to get out of bed with assistance. No further orders at this time.
[2021-08-01] MEDS: INSULIN ASPART PER UNIT SC SCH ×4 (08:54→20:33)
[2021-08-01] MEDS: ATORVASTATIN 40 MG TAB PO SCH (08:55)
[2021-08-01] MEDS: METOPROLOL TARTRATE 100 MG TAB PO SCH ×2 (08:55→20:15)
[2021-08-01] MEDS: CLOPIDOGREL BISULFATE 75 MG TAB PO SCH (08:55)
[2021-08-01] MEDS: LOSARTAN POTASSIUM 25 MG TAB PO SCH (08:55)
[2021-08-01] MEDS: VENLAFAXINE HCL XR 150 MG CAPXR PO SCH (08:55)
[2021-08-01] MEDS: MECLIZINE 12.5 MG TAB PO SCH ×4 (08:56→20:13)
[2021-08-01] MEDS: PANTOprazole 40 MG TAB PO SCH (08:56)
[2021-08-01] MEDS: VENLAFAXINE HCL XR 75 MG CAPXR PO SCH (08:56)
[2021-08-01] MEDS: amLODIPine BESYLATE 5 MG TAB PO SCH ×2 (08:56→20:14)
[2021-08-01] MEDS: ASPIRIN 81 MG ECTAB PO SCH (08:56)
[2021-08-01] MEDS: ACETAMINOPHEN 325 MG TAB PO PRN (09:27)
[2021-08-01] MEDS: TERAZOSIN HCL 1 MG CAP PO SCH (20:13)
--- NOTE | 2021-08-01 22:09 | Hospitalist Progress Note ---
Date of Service August 01, 2021 Assessment & Plan (1) Visual disturbance: Plan: Likely 2nd to intracerebral swelling from stroke. CT head was obtained 07/30/21 showing considerable brain edema in setting of #1. No occipital lobe cva or ICH. Ocular exam remains similar to previous. Actually even a bit better this am. Follow carefully. If any worsening of this issue - repeat MRI brain. Suspect the visual issues will improve as the edema improves. (2) Cerebellar stroke, acute: Plan: LARGE right cerebellar stroke. CTA neck with right vertebral artery thrombosis/occlusion with some reconstit ution of flow. A vertebral artery dissection is suspected but cannot be completely confirmed. The thrombus is ~4cm in length. Etiology of stroke - either large cardioembolic embolus in the setting of PAF with R vertebral artery thrombosis and subsequent stroke VS vertebral artery dissection with subsequent thrombosis and stroke. Favor latter. Appreciate neurology consultation by Dr Qureshi. Both Dr Qureshi and [facility] Stroke physician (contacted them 07/28/21 pm) recommend asa/plavix for secondary prevention. Cont both. Cont lipitor 40mg daily. He did present with rapid a.fib - will need anticoagulation - but hold off on such due to high risk of hemorrhagic conversion. About 10 days out from the stroke will be safer to start oral anticoagulant at that time. Continue PT, OT. Both advising inpatient rehab. EXCELLENT candidate for such. Continue telemetry. Cont neuro checks. For vertigo cont meclizine QID. (3) Vertigo: Plan: 2nd to #2. cont meclizine. (4) Vertebral artery occlusion: Plan: Right. ?underlying dissection with subsequent thrombosis? Other possible etiology is that of a large embolus in the setting of paroxysmal a.fib but felt to be less likely. See # 1 above. No surgical or neuro-IR intervention needed at this time. Continue asa/plavix for secondary prevention. (5) Atrial fibrillation: Plan: PAF. Present at time of admission -- converting back to NSR about 1600 on 07/27/21. CHADS-VASc score is 5 - anticoagulation will be needed. Given #1 and the high risk of hemorrhagic conversion given the location & size of his stroke will defer on IV heparin at this time. However, will need oral anticoagulant in the near-future -- likely in about 10 days per the stroke physician at [facility]. Continue metoprolol BID. Keep on tele. Echo with preserved EF. TSH wnl. Low potassium at time of admission may have precipitated his PAF episode as well. K/Mag wnl now. (6) Weakness: Plan: Present on admission. Retrospectively was likely 2nd to #1 above. Weakness improved/resolving. Cont PT/OT. Will need inpatient rehab. Minor fall overnight -- fortunately no injuries or trauma from such. (7) Hypertension: Plan: Continue amlodipine 5mg twice daily, metoprolol 100mg BID, terazosin 2mg daily, losartan 25mg daily. If BPs continue to be elevated increase losartan to 25mg BID. (8) Chronic kidney disease, stage 3 (moderate): Plan: stage 3a. bmps stable. (9) Depression: Plan: Cont effexor. (10) Vitamin B12 deficiency: Plan: cont B12 supplementation (11) Hypokalemia: Plan: replaced resolved (12) Hyperlipidemia: Plan: see above cont lipitor 40mg daily (13) Hypothyroidism: Plan: TSH 2.5 cont synthroid (14) DVT prophylaxis: Plan: cont heparin SC (15) Diabetes mellitus: Plan: controlled on metformin a1c <6% novolog SSI for now DM diet Plan: updated pt's sister several days ago by phone she lives in [place] left message for sister on her voicemail this evening dispo planning for rehab --- [facility] Admission and Anticipated Discharge Date Admission Date: July 27, 2021 Subjective pt without any new complaints he did have a minor fall while ambulating to BR in middle of the night hit his nose only - minor scrape; denies pain cont with ataxia with walking - maybe slightly improved visual disturbance unchanged, but certainly not worse no diplopia no blurry vision eating ok tele overnight - no a.fib Review of Systems Review of Systems: gen - no fevers cv - no orthopnea GI - no nausea/emesis pulm - no dyspnea neuro - vertigo remains but much better than prior visits Physical Exam Physical Exam: gen - NAD, awake, alert eyes - PERRL; right lateral abducens (6th nerve) palsy seems nearly resolved; otherwise EOMI; nystagmus with L gaze also improved neck - no JVD mouth - MMM heart - RRR, s1 s2, no murmur lungs - CTA b/l abd - soft NT ND BS+ ext - no edema, pulses 2+ b/l neuro - strength 5/5 x 4 exts; finger/nose/finger maneuver R hand with no ataxia today; left hand without ataxia musculo - no signs of trauma to any limb; no pain to palpation over the pelvis/hips skin - minor scrape bridge of nose Results & Data Results & Data ([facility]) Vital Signs (Past 12 Hours) Vital Signs Temp Pulse Pulse Resp BP Pulse Ox 08/01/21 19:54 36.8 C 63 18 144/74 H 95 08/01/21 15:59 36.7 C 72 18 154/84 H 96 08/01/21 14:21 55 L 08/01/21 11:09 36.7 C 52 L 18 155/75 H 96 Laboratory Results Laboratory Results - last 24 hr 08/01/21 08/01/21 08/01/21 07:22 11:37 16:28 POC Glucose 112 H 102 H 99 08/01/21 20:28 POC Glucose 105 H PG Care Time/CCT Total # of Minutes Spent Total Time Spent with Patient: Total time spent is greater than 50% in coordination of care (as documented) at patient's floor/unit and/or counseling patient: Coding Level of Care Code 79398 Subseq Hosp Care Lvl 2 Diagnoses Visual disturbance H53.9 Cerebellar stroke, acute I63.9 Vertigo R42 Vertebral artery occlusion I65.09 Atrial fibrillation I48.91 Weakness R53.1 Hypertension I10 Chronic kidney disease, stage 3 (moderate) N18.3 Depression F32.9 Vitamin B12 deficiency E53.8 Hypokalemia E87.6 Hyperlipidemia E78.5 Hypothyroidism E03.9 DVT prophylaxis Z29.9 Diabetes mellitus E11.9
[2021-08-02] MEDS: HEPARIN SOD 5,000 UNIT/0.5 ML VIAL SQ SCH ×3 (05:50→20:27)
[2021-08-02] MEDS: LEVOTHYROXINE SODIUM 125 MCG TABLET PO SCH (05:50)
[2021-08-02] MEDS: INSULIN ASPART PER UNIT SC SCH ×4 (07:32→20:25)
[2021-08-02 08:08] LABS: Anion Gap 6 (3-11); BUN Creatinine Ratio 17.5 (10-20); Blood Urea Nitrogen 21 mg/dl (6-23); Calcium 8.6 mg/dl (8.5-10.1); Carbon Dioxide 27 mmol/L (21-32); Chloride 103 mmol/L (98-107); Creatinine Clr Calc Pharmacy 62.8 ml/min; Est GFR (African American) 71.6 ml/min; Est GFR (Non-African American) 61.8 ml/min; Glucose 87 mg/dl (70-99(Fasting)); Sodium 136 mmol/L (136-145)
[2021-08-02] MEDS: amLODIPine BESYLATE 5 MG TAB PO SCH ×2 (08:21→20:28)
[2021-08-02] MEDS: VENLAFAXINE HCL XR 75 MG CAPXR PO SCH (08:21)
[2021-08-02] MEDS: CLOPIDOGREL BISULFATE 75 MG TAB PO SCH (08:21)
[2021-08-02] MEDS: METOPROLOL TARTRATE 100 MG TAB PO SCH ×2 (08:21→20:26)
[2021-08-02] MEDS: ATORVASTATIN 40 MG TAB PO SCH (08:21)
[2021-08-02] MEDS: ASPIRIN 81 MG ECTAB PO SCH (08:22)
[2021-08-02] MEDS: LOSARTAN POTASSIUM 25 MG TAB PO SCH ×2 (08:22→20:29)
[2021-08-02] MEDS: PANTOprazole 40 MG TAB PO SCH (08:22)
[2021-08-02] MEDS: VENLAFAXINE HCL XR 150 MG CAPXR PO SCH (08:22)
[2021-08-02] MEDS: MECLIZINE 12.5 MG TAB PO SCH ×3 (08:22→16:51)
[2021-08-02] MEDS: ACETAMINOPHEN 325 MG TAB PO PRN (08:27)
[2021-08-02] MEDS: TERAZOSIN HCL 1 MG CAP PO SCH (20:27)
[2021-08-02] MEDS: MECLIZINE HCL 25 MG TAB PO SCH (20:29)
--- NOTE | 2021-08-02 21:16 | Hospitalist Progress Note ---
Date of Service August 02, 2021 Assessment & Plan (1) Visual disturbance: Plan: Likely 2nd to intracerebral swelling from stroke. CT head was obtained 07/30/21 showing considerable brain edema in setting of his acute R cerebellar stroke. No occipital lobe cva or ICH on that CT head. Ocular exam remains stable. If any worsening of this issue - repeat MRI brain. Suspect the visual issues will improve as the edema improves. Edema should peak about day 5-6 post-stroke (which is about today). Cont to monitor. (2) Cerebellar stroke, acute: Plan: LARGE right cerebellar stroke. CTA neck with right vertebral artery thrombosis/occlusion with some reconstitution of flow. A vertebral artery dissection is suspected but cannot be completely confirmed. The thrombus is ~4cm in length. Etiology of stroke - either large cardioembolic embolus in the setting of PAF with R vertebral artery thrombosis and subsequent stroke VS vertebral artery dissection with subsequent thrombosis and stroke. Favor latter. Appreciate neurology consultation by Dr Qureshi. Both Dr Qureshi and Nisreen Stroke physician (contacted them 07/28/21 pm) recommend asa/plavix for secondary prevention. Cont both. Cont lipitor 40mg daily. He did present with rapid a.fib - will need anticoagulation - but hold off on such due to high risk of hemorrhagic conversion. About 10-14 days out from the stroke will be safer to start oral anticoagulant at that time. Once he starts an anticoagulant (e.g. eliquis) would stop the plavix and continue with aspirin. Continue PT, OT. Both advising inpatient rehab. EXCELLENT candidate for such. Referral pending to [facility]. Continue telemetry. Cont neuro checks. For vertigo cont meclizine but increase to 25mg TID (From 12.5mg QID). (3) Vertigo: Plan: 2nd to #2. cont meclizine. due to ongoing symptoms increase meclizine from 12.5mg QID to 25mg TID. (4) Vertebral artery occlusion: Plan: Right. ?underlying dissection with subsequent thrombosis? Other possible etiology is that of a large embolus in the setting of paroxysmal a.fib but felt to be less likely. No surgical or neuro-IR intervention indicated. Continue asa/plavix for secondary prevention. (5) Atrial fibrillation: Plan: PAF. Present at time of admission -- converting back to NSR about 1600 on 07/27/21. CHADS-VASc score is 5 - anticoagulation will be needed. Will need oral anticoagulant in the near-future -- 10-14 days past the the time of the acute stroke. Continue metoprolol BID. Keep on tele. Echo with preserved EF. TSH wnl. Low potassium at time of admission may have precipitated his PAF episode as well. K/Mag wnl now. (6) Weakness: Plan: Present on admission. Retrospectively was likely 2nd to #1 above. Weakness improved/resolving. Cont PT/OT. Will need inpatient rehab. Had Minor fall 2 nights ago -- fortunately no injuries or trauma from such. (7) Hypertension: Plan: Continue amlodipine 5mg twice daily, metoprolol 100mg BID, terazosin 2mg daily. Increase his losartan to 25mg BID due to uncontrolled BPs. Given he is needing 4 drugs consider renal artery dopplers, renin/cait levels, etc to rule out secondary hypertension causes. (8) Chronic kidney disease, stage 3 (moderate): Plan: stage 3a. bmps stable. (9) Depression: Plan: Cont effexor. (10) Vitamin B12 deficiency: Plan: cont B12 supplementation (11) Hypokalemia: Plan: replaced resolved (12) Hyperlipidemia: Plan: see above cont lipitor 40mg daily (13) Hypothyroidism: Plan: TSH 2.5 cont synthroid (14) DVT prophylaxis: Plan: cont heparin SC (15) Diabetes mellitus: Plan: controlled on metformin a1c <6% novolog SSI for now DM diet Plan: updated pt's sister several days ago by phone she lives in [place] left message for sister on her voicemail yesterday evening dispo planning for rehab --- [facility] at this point he is medically stable for d/c to rehab Admission and Anticipated Discharge Date Admission Date: July 27, 2021 Subjective no changes in vertigo, visual disturbance, or his ataxia still with vertigo with minimal activity/movement tele - no PAF feels good otherwise no new complaints Review of Systems Review of Systems: cv - no cp pulm - no dyspnea GI - no N/V/pain or diarrhea neuro - ongoing headache but no worse than previous; no focal motor weakness Physical Exam Physical Exam: gen - NAD, awake, alert eyes - PERRL; right lateral abducens (6th nerve) palsy resolved; nystagmus with L gaze resolved neck - no JVD mouth - MMM heart - RRR, s1 s2, no murmur lungs - CTA b/l abd - soft NT ND BS+ ext - no edema, pulses 2+ b/l neuro - strength 5/5 x 4 exts; finger/nose/finger maneuver b/l without ataxia; gait not tested psych - awake, alert, oriented x 3 Results & Data Results & Data ([facility]) Vital Signs (Past 12 Hours) Vital Signs Temp Pulse Pulse Resp BP Pulse Ox 08/02/21 19:29 37 C 56 L 18 166/86 H 92 08/02/21 15:42 37.0 C 51 L 22 156/78 H 96 08/02/21 15:35 52 L 08/02/21 11:26 36.7 C 55 L 16 144/78 H 96 PG Care Time/CCT Total # of Minutes Spent Total Time Spent with Patient: Total time spent is greater than 50% in coordination of care (as documented) at patient's floor/unit and/or counseling patient: Coding Level of Care Code 61125 Subseq Hosp Care Lvl 2 Diagnoses Visual disturbance H53.9 Cerebellar stroke, acute I63.9 Vertigo R42 Vertebral artery occlusion I65.09 Atrial fibrillation I48.91 Weakness R53.1 Hypertension I10 Chronic kidney disease, stage 3 (moderate) N18.3 Depression F32.9 Vitamin B12 deficiency E53.8 Hypokalemia E87.6 Hyperlipidemia E78.5 Hypothyroidism E03.9 DVT prophylaxis Z29.9 Diabetes mellitus E11.9
[2021-08-03] MEDS: ACETAMINOPHEN 325 MG TAB PO PRN ×3 (00:49→20:09)
[2021-08-03] MEDS: LEVOTHYROXINE SODIUM 125 MCG TABLET PO SCH (06:25)
[2021-08-03] MEDS: HEPARIN SOD 5,000 UNIT/0.5 ML VIAL SQ SCH ×3 (06:25→20:58)
[2021-08-03] MEDS: MECLIZINE HCL 25 MG TAB PO SCH ×3 (08:59→20:11)
[2021-08-03] MEDS: ASPIRIN 81 MG ECTAB PO SCH (08:59)
[2021-08-03] MEDS: VENLAFAXINE HCL XR 150 MG CAPXR PO SCH (08:59)
[2021-08-03] MEDS: ATORVASTATIN 40 MG TAB PO SCH (08:59)
[2021-08-03] MEDS: LOSARTAN POTASSIUM 25 MG TAB PO SCH (09:00)
[2021-08-03] MEDS: CLOPIDOGREL BISULFATE 75 MG TAB PO SCH (09:00)
[2021-08-03] MEDS: PANTOprazole 40 MG TAB PO SCH (09:00)
[2021-08-03] MEDS: VENLAFAXINE HCL XR 75 MG CAPXR PO SCH (09:00)
[2021-08-03] MEDS: METOPROLOL TARTRATE 100 MG TAB PO SCH ×2 (09:00→20:10)
[2021-08-03] MEDS: amLODIPine BESYLATE 5 MG TAB PO SCH ×2 (09:00→20:10)
[2021-08-03] MEDS: INSULIN ASPART PER UNIT SC SCH ×4 (09:54→20:52)
--- NOTE | 2021-08-03 19:18 | Hospitalist Progress Note ---
Date of Service August 03, 2021 Assessment & Plan (1) Visual disturbance: Plan: Likely 2nd to intracerebral swelling from stroke. CT head was obtained 07/30/21 showing considerable brain edema in setting of his acute R cerebellar stroke. No occipital lobe cva or ICH on that CT head. Ocular exam remains stable. If any worsening of this issue - repeat MRI brain. However, he is improving Suspect the visual issues will improve as the edema improves. Edema should peak about day 5-6 post-stroke (which is about today). Cont to monitor. (2) Cerebellar stroke, acute: Plan: LARGE right cerebellar stroke. CTA neck with right vertebral artery thrombosis/occlusion with some reconstitution of flow. A vertebral artery dissection is suspected but cannot be completely confirmed. The thrombus is ~4cm in length. Etiology of stroke - either large cardioembolic embolus in the setting of PAF with R vertebral artery thrombosis and subsequent stroke VS vertebral artery dissection with subsequent thrombosis and stroke. Favor latter. Appreciate neurology consultation by Dr Qureshi. Both Dr Qureshi and Nisreen Stroke physician (contacted them 07/28/21 pm) recommend asa/plavix for secondary prevention. Cont both for now and then drop Plavix once ELiqiuis starts for Afib. Cont lipitor 40mg daily. He did present with rapid a.fib - will need anticoagulation - but hold off on such due to high risk of hemorrhagic conversion. About 10-14 days out from the stroke will be safer to start oral anticoagulant at that time. Once he starts an anticoagulant (e.g. eliquis) would stop the plavix and francis nue with aspirin. Continue PT, OT. Both advising inpatient rehab. EXCELLENT candidate for such. Referral pending to [facility]. Continue telemetry. Cont neuro checks. For vertigo cont meclizine 25mg TID (3) Vertigo: Plan: 2/2 CVA, improving cont meclizine. continue meclizine 25mg TID. (4) Vertebral artery occlusion: Plan: Right. ?underlying dissection with subsequent thrombosis? Other possible etiology is that of a large embolus in the setting of paroxysmal a.fib but felt to be less likely. No surgical or neuro-IR intervention indicated. Continue asa/plavix for secondary prevention. (5) Atrial fibrillation: Plan: PAF. Present at time of admission -- converting back to NSR about 1600 on 07/27/21. CHADS-VASc score is 5 - anticoagulation will be needed. Will need oral anticoagulant in the near-future -- 10-14 days past the the time of the acute stroke. Continue metoprolol BID. Keep on tele. Echo with preserved EF. TSH wnl. Low potassium at time of admission may have precipitated his PAF episode as well. K/Mag wnl now. (6) Weakness: Plan: Present on admission. Retrospectively was likely 2nd CVA Weakness improved/resolving. Cont PT/OT. Will need inpatient rehab. Had Minor fall in the hospital -- fortunately no injuries or trauma from such. (7) Hypertension: Plan: Continue amlodipine 5mg twice daily, metoprolol 100mg BID, terazosin 2mg daily. Increased his losartan to 25mg BID due to uncontrolled BPs. Remain high-may need to further increase this to 50mg bid Given he is needing 4 drugs consider renal artery dopplers, renin/cait levels, etc to rule out secondary hypertension causes. (8) Chronic kidney disease, stage 3 (moderate): Plan: stage 3a. bmps stable. (9) Depression: Plan: Cont effexor. (10) Vitamin B12 deficiency: Plan: cont B12 supplementation (11) Hypokalemia: Plan: replaced resolved (12) Hyperlipidemia: Plan: see above cont lipitor 40mg daily (13) Hypothyroidism: Plan: TSH 2.5 cont synthroid (14) Diabetes mellitus: Plan: controlled on metformin a1c <6% novolog SSI for now DM diet (15) DVT prophylaxis: Plan: cont heparin SC Plan: dispo planning for rehab --- [facility] at this point he is medically stable for d/c to rehab -awaiting insurance auth Admission and Anticipated Discharge Date Admission Date: July 27, 2021 Subjective feeling better today, less dizzy and visual disturbances are better. Says the headache he had for a month is now gone No CP or SOB, no nausea, is eating well, moving bowels Tele with NSR, normal rates, PVCs Review of Systems Review of Systems: All systems reviewed & are unremarkable except as noted in HPI & below Physical Exam Constitutional: WD/WN, vitals as above Eyes: PERRL, conjunctivae normal, anicteric sclerae EOM intact bilaterally; no anisocoria and no nystagmus ENMT: external ear and nose normal, oropharynx normal Neck: trachea midline, no thyromegaly Respiratory: normal respiratory effort, lungs clear to auscultation Cardiovascular: RRR, no murmur, no edema Chest (Breasts): Chest: normal inspection of chest Gastrointestinal (Abdomen): normal bowel sounds, soft, nontender, no hepat osplenomegaly Musculoskeletal: Extremities: extremities normal to inspection; no cyanosis and no clubbing Skin: no rashes, warm and dry Neurologic: moves all extremities and awake; no focal motor deficits Psychiatric: A+Ox3, euthymic affect Lymphatic: no lymphedema Results & Data Results & Data ([facility]) Vital Signs (Past 12 Hours) Vital Signs Temp Pulse Pulse Resp BP BP Pulse Ox 08/03/21 17:21 36.5 C 63 16 171/84 H 93 08/03/21 14:52 56 L 08/03/21 12:34 36.4 C L 56 L 16 170/92 H 95 08/03/21 08:10 36.8 C 69 18 162/84 H 96 08/03/21 07:57 61 Laboratory Results 08/03/21 08/03/21 08/02/21 Range/Units 16:14 11:23 20:04 POC Glucose 97 116 H 105 H (70-99) mg/dl PG Care Time/CCT Total # of Minutes Spent Total Time Spent with Patient: Total time spent is greater than 50% in coordination of care (as documented) at patient's floor/unit and/or counseling patient: Coding Level of Care Code 54836 Subseq Hosp Care Lvl 2 Diagnoses Visual disturbance H53.9 Cerebellar stroke, acute I63.9 Vertigo R42 Vertebral artery occlusion I65.09 Atrial fibrillation I48.91 Weakness R53.1 Hypertension I10 Chronic kidney disease, stage 3 (moderate) N18.3 Depression F32.9 Vitamin B12 deficiency E53.8 Hypokalemia E87.6 Hyperlipidemia E78.5 Hypothyroidism E03.9 DVT prophylaxis Z29.9 Diabetes mellitus E11.9
[2021-08-03] MEDS: TERAZOSIN HCL 1 MG CAP PO SCH (20:10)
[2021-08-03] MEDS: LOSARTAN POTASSIUM 50 MG TAB PO SCH (20:11)
[2021-08-04] MEDS: LEVOTHYROXINE SODIUM 125 MCG TABLET PO SCH (05:50)
[2021-08-04] MEDS: HEPARIN SOD 5,000 UNIT/0.5 ML VIAL SQ SCH ×2 (05:50→14:27)
[2021-08-04] MEDS: ACETAMINOPHEN 325 MG TAB PO PRN ×2 (05:51→14:48)
[2021-08-04 06:21] LABS: Basophils # (auto) 0.07 K/uL (0-0.2); Basophils % (auto) 0.7 %; Eosinophils # (auto) 0.53 K/uL (0-0.5); Hematocrit (blood only) 40.3 % (42-52); Hemoglobin 13.4 g/dL (14.0-18.0); Immature Granulocytes # (auto) 0.04 K/uL (0.00-0.02); Immature Granulocytes % (auto) 0.4 %; Lymphocytes # (auto) 2.23 K/uL (1.2-3.4); Lymphocytes % (auto) 21.2 %; Mean Corpuscular Hemoglobin 30.2 pg (25-34); Mean Corpuscular Hgb Conc 33.3 g/dL (32-36); Mean Platelet Volume 10.8 fL (7.4-10.4); Monocytes # (auto) 1.32 K/uL (0.11-0.59); Monocytes % (auto) 12.6 %; Neutrophils # (auto) 6.31 K/uL (1.4-6.5); Neutrophils % (auto) 60.1 %; Platelet Count 318 K/uL (130-400); RDW Coefficient of Variation 13.7 % (11.5-14.5); RDW Standard Deviation 45.5 fL (36.4-46.3); Red Blood Count 4.43 M/uL (4.7-6.1)
[2021-08-04 06:56] LABS: Anion Gap 6 (3-11); BUN Creatinine Ratio 15.8 (10-20); Blood Urea Nitrogen 21 mg/dl (6-23); Calcium 8.7 mg/dl (8.5-10.1); Carbon Dioxide 29 mmol/L (21-32); Chloride 103 mmol/L (98-107); Creatinine Clr Calc Pharmacy 56.6 ml/min; Est GFR (African American) 63.2 ml/min; Est GFR (Non-African American) 54.5 ml/min; Glucose 86 mg/dl (70-99(Fasting)); Magnesium 1.9 mg/dl (1.7-2.4); Sodium 138 mmol/L (136-145)
[2021-08-04] MEDS: INSULIN ASPART PER UNIT SC SCH ×2 (07:29→11:39)
[2021-08-04] MEDS ORDERED: MAGNESIUM SULFATE / D5W 1 GM/100 ML BAG IV ONE (08:22)
[2021-08-04] MEDS: VENLAFAXINE HCL XR 150 MG CAPXR PO SCH (08:35)
[2021-08-04] MEDS: VENLAFAXINE HCL XR 75 MG CAPXR PO SCH (08:35)
[2021-08-04] MEDS: METOPROLOL TARTRATE 100 MG TAB PO SCH (08:35)
[2021-08-04] MEDS: LOSARTAN POTASSIUM 50 MG TAB PO SCH (08:35)
[2021-08-04] MEDS: ASPIRIN 81 MG ECTAB PO SCH (08:36)
[2021-08-04] MEDS: CLOPIDOGREL BISULFATE 75 MG TAB PO SCH (08:36)
[2021-08-04] MEDS: amLODIPine BESYLATE 5 MG TAB PO SCH (08:36)
[2021-08-04] MEDS: ATORVASTATIN 40 MG TAB PO SCH (08:36)
[2021-08-04] MEDS: MECLIZINE HCL 25 MG TAB PO SCH ×2 (08:37→14:27)
[2021-08-04] MEDS ORDERED: STROKE PATIENT DISCHARGE STA (10:57)
--- NOTE | 2021-08-04 11:07 | Discharge Summary ---
Date of Service August 04, 2021 Admission HPI Per Admitting Provider Patient presents via EMS due to concern for fall. When EMS had arrived the patient was found on the ground. The patient does complain of being weak and fatigue with associated diarrhea. The patient was noted to be diaphoretic and pale but denies any chest pain shortness of breath nausea or vomiting. The patient denies any abdominal pain. Patient denies any alcohol tobacco or drug use. The patient denies any head or neck pain. BSG prior to arrival is 133 and the patient did receive IV fluids. EKG showed sinus arrhythmia. Patient denies any changes in medications no known sick contacts or recent travel. No stream or well water use or recent antibiotics. Patient reportedly had a apparent run of atrial fibrillation in the ER on the monitor this is likely prior to repletion of his potassium, will continue him on monitor recheck an EKG in the ER may be add additional IV potassium to his augmenting Patient reportedly is on disability patient lives alone has no local family patient did have a fall in the ER without apparent injury and I do begin to wonder about patient's safety will ask case management to explore other options for this patient and or least have him assessed Principal Diagnosis Acute ischemic cerebellar stroke, rapid atrial fibrillation-new onset Discharge Exam Constitutional WD/WN, vitals as above Eyes PERRL, conjunctivae normal, anicteric sclerae EOM intact bilaterally; no anisocoria and no nystagmus ENMT external ear and nose normal, oropharynx normal Neck trachea midline, no thyromegaly Respiratory normal respiratory effort, lungs clear to auscultation Cardiovascular RRR, no murmur, no edema Chest (Breasts) Chest: normal inspection of chest Gastrointestinal (Abdomen) normal bowel sounds, soft, nontender, no hepatosplenomegaly Musculoskeletal Extremities: extremities normal to inspection; no cyanosis and no clubbing Skin no rashes, warm and dry Neurologic moves all extremities and awake; no focal motor deficits Psychiatric A+Ox3, euthymic affect Lymphatic no lymphedema Discharge Data Allergies Allergy/AdvReac Type Severity Reaction Status Date / Time Penicillins Allergy Unknown Verified 07/08/21 12:34 Consultations 07/27/21 14:23 ED Decision to Admit Stat 07/28/21 15:38 Consult Neurology Routine Ordered Studies 07/27/21 11:20 CT head/brain wo con Stat 07/28/21 13:34 MR brain wo con Stat 07/28/21 15:38 CT angio head w con Routine CT angio neck with con Routine 07/30/21 14:33 CT head/brain wo con Routine Echocardiogram Hospital Course (1) Visual disturbance: Likely 2nd to intracerebral swelling from stroke. CT head was obtained 07/30/21 showing considerable brain edema in setting of his acute R cerebellar stroke. No occipital lobe cva or ICH on that CT head. Ocular exam remains stable to improved If any worsening of this issue - repeat MRI brain. However, he is improving Suspect the visual issues will improve as the edema improves. Edema should peak about day 5-6 post-stroke which has now been passed Cont to monitor at rehab (2) Cerebellar stroke, acute: LARGE right cerebellar stroke. CTA neck with right vertebral artery thrombosis/occlusion with some reconstitution of flow. A vertebral artery dissection is suspected but cannot be completely confirmed. The thrombus is ~4cm in length. Etiology of stroke - either large cardioembolic embolus in the setting of PAF with R vertebral artery thrombosis and subsequent stroke VS vertebral artery dissection with subsequent thrombosis and stroke. Favor latter. Echocardiogram without thrombus Appreciate neurology consultation by Dr Qureshi. Both Dr Qureshi and Nisreen Stroke physician (contacted them 07/28/21 pm) recommend asa/plavix for secondary prevention. Cont both for now and then drop Plavix once ELiqiuis starts for Afib. Cont lipitor 40mg daily. He did present with rapid a.fib - will need anticoagulation - but hold off on such due to high risk of hemorrhagic conversion. About 10-14 days out from the stroke will be safer to start oral anticoagulant at that time. Once he starts an anticoagulant (e.g. eliquis) would stop the plavix and continue with aspirin. Continue PT, OT. Both advising inpatient rehab. EXCELLENT candidate for such. His vertigo is now significantly improved since admission For vertigo cont meclizine 25mg TID (3) Vertigo: 2/2 CVA, continues to improve daily, almost completely gone cont meclizine. continue meclizine 25mg TID. (4) Vertebral artery occlusion: Right. ?underlying dissection with subsequent thrombosis? Other possible etiology is that of a large embolus in the setting of paroxysmal a.fib but felt to be less likely. No surgical or neuro-IR intervention indicated. Continue asa/plavix for secondary prevention and then transition to Eliquis and aspirin alone at 10-14 days as above (5) Atrial fibrillation: PAF. Present at time of admission -- converting back to NSR about 1600 on 07/27/21. CHADS-VASc score is 5 - anticoagulation will be needed. Will need oral anticoagulant in the near-future -- 10-14 days past the the time of the acute stroke. Continue metoprolol BID. Echo with preserved EF. TSH wnl. Low potassium at time of admission may have precipitated his PAF episode as well. K/Mag wnl now. (6) Weakness: Present on admission. Retrospectively was likely 2nd CVA Weakness improved/resolving. Cont PT/OT. Will need inpatient rehab. Had Minor fall in the hospital -- fortunately no injuries or trauma from such. (7) Hypertension: Continue amlodipine 5mg twice daily, metoprolol 100mg BID, terazosin 2mg daily. Increased his losartan to 50mg BID due to uncontrolled BPs Given he is needing 4 drugs consider renal artery dopplers, renin/cait levels, etc to rule out secondary hypertension causes. (8) Chronic kidney disease, stage 3 (moderate): stage 3a. bmps stable. (9) Depression: Cont effexor. (10) Vitamin B12 deficiency: cont B12 supplementation (11) Hypokalemia: replaced resolved (12) Hyperlipidemia: see above cont lipitor 40mg daily (13) Hypothyroidism: TSH 2.5 cont synthroid (14) Diabetes mellitus: controlled on metformin a1c <6% novolog SSI for now and restart metformin as an outpatient DM diet (15) DVT prophylaxis: Received heparin SC dispo planning for rehab --- [facility] at this point he is medically stable for d/c to rehab Total Time Total Time Spent Total Time Spent (In Minutes): 40 minutes Discharge Plan Discharge Items Patient Disposition: Transfer Inpatient Rehab Fac Reason For Visit: FALL, HYPOKALEMIA, DIARRHEA Discharge Diagnosis: Acute ischemic CVA, Rapid atrial fibrillation Condition on Discharge: Fair Activity: As commented below Lifting: Gradually increase as tolerated Bathing: No limitations Exercise/Sports: Gradually increase as tolerated Driving/Machine Use: No driving until cleared by physician Weightbearing: Full weightbearing Non-emergency contact: Primary Care Provider and Neurologist Call non-emergency contact if: you have any medication questions and your symptoms worsen Follow-up/Referrals: Nba Qureshi MD [Physician] - (Follow up for stroke in 3-4 weeks) Jian Cruz MD [Primary Care Provider] - Diet: Carb Consistent or DM2 and Heart Healthy Addtl Attending Provider Instructions: You were admitted with a stroke. You were also found to have an irregular heart rhythm called atrial fibrillation and this is likely what caused you to have the stroke. You are currently on both aspirin and Plavix as blood thinners, but starting on 08/10/21, you should STOP the Plavix and START Eliquis as a blood thinner in addition to the baby aspirin. Your blood pressures remain somewhat elevated and some of your medications have been adjusted to better control this. You will need to start PT and OT at rehab to improve your dizziness. Continue the meclizine as well for dizziness. Risk Factors for Stroke: You can reduce your chances of stroke by working with your medical provider to adopt a healthy lifestyle. Some specific ways to lower your chance of stroke are: * If you are a smoker, now is the time to stop smoking cigarettes * If you are diabetic, improve the control of your blood sugars * Avoid excessive amounts of alcohol * Control high blood pressure * Lose weight if you are overweight * Be sure to lead an active lifestyle * Eat a healthy diet low in salt, cholesterol and fat You should know about other risk factors for stroke that you are unable to control. These include: * Age 55 years or older * Male gender * Certain racial groups: , or / * Family History of Stroke, Mini stroke or Heart Attack * Sickle Cell Disease Follow Up: It is important for you to keep your follow up appointments with your medical provider. Who to Call and When: Medical Emergencies: Call 911 immediately if you experience any of the following warning signs and symptoms of Stroke: * Sudden numbness or weakness of the face, arm or leg, especially on one side of the body * Sudden confusion, trouble speaking or understanding * Sudden trouble seeing in one or both eyes * Sudden trouble walking, dizziness, loss of balance or coordination * Sudden severe headache with no cause Do not delay calling 911 if you experience any warning signs or symptoms of a stroke. Delay in seeking medical attention may affect what treatments can be given to you. . Pending Studies at Discharge: No Stand-Alone Forms: Medications to Prevent Stroke, [facility] Skilled Items Patient informed of condition?: Yes DNR: No Discharge Level of Care: Acute rehab Communicable Disease: No Discharge Prognosis: Improving Lines: None Urinary Catheter: No Medications and DC Order Prescriptions: New losartan 50 mg Tablet 50 mg PO BID Qty: 60 RF: 0 atorvastatin 40 mg Tablet 40 mg PO QAM Qty: 30 RF: 0 acetaminophen 325 mg Tablet 650 mg PO Q4H PRN (Reason: pain) Qty: 30 RF: 0 aspirin 81 mg Tablet,Delayed Release (Dr/Ec) 81 mg PO QAM Qty: 30 RF: 0 meclizine 25 mg Tablet 25 mg PO TID Qty: 30 RF: 0 Eliquis 5 mg tablet 5 mg PO BID Qty: 60 RF: 0 Continued metoprolol succinate 200 mg tablet extended release 24 hr 200 mg PO DAILY Qty: 90 RF: 3 levothyroxine 125 mcg tablet 125 mcg PO DAILY Qty: 90 RF: 3 metformin 500 mg tablet 500 mg PO BID Qty: 60 RF: 5 amlodipine 10 mg tablet 5 mg PO BID Qty: 90 RF: 1 venlafaxine 150 mg capsule,extended release 24hr 150 mg PO DAILY Qty: 90 RF: 3 venlafaxine 75 mg capsule,extended release 24hr 75 mg PO DAILY Qty: 90 RF: 3 terazosin 2 mg capsule 2 mg PO HS RF: 0 Discharge Orders: Discharge Order (Routine); Ordered 08/04/21 Ordered By: Kary Montalvo/Other Patient Handouts: Symptoms of Stroke, Stroke: Taking Medicines, Stroke: Self-Care Admission Data Admit Date/Time: 07/27/21 14:24 Attending Provider: Kary Fontenot Admit Provider: Jeremy Fuller Primary Care Provider: Jian Cruz V. Other Providers: Jeremy Fuller ; Nba Qureshi ; [facility] ; [facility] Other Interventions: Discharge Summary Assessment (RN) Last Done: 08/04/21 12:44 Coding Level of Care Code D/C DAY MANAGEMENT >30 MINS Diagnoses Visual disturbance H53.9 Cerebellar stroke, acute I63.9 Vertigo R42 Vertebral artery occlusion I65.09 Atrial fibrillation I48.91 Weakness R53.1 Hypertension I10 Chronic kidney disease, stage 3 (moderate) N18.3 Depression F32.9 Vitamin B12 deficiency E53.8 Hypokalemia E87.6 Hyperlipidemia E78.5 Hypothyroidism E03.9 Diabetes mellitus E11.9 DVT prophylaxis Z29.9
== END 2021-08-04 15:31 | DRG 64 ==
LOC: ED 11:15 → SUATTDRO 14:24 → 2S 14:24